=== PATIENT | female | born 1995 | race Caucasian/White ===

== ENCOUNTER 2023-02-25 05:53 | Inpatient (IN) ==
[2023-02-25] MEDS ORDERED: LACTATED RINGER'S 2,000 ML IV ONE (09:59)
[2023-02-25] MEDS ORDERED: BUTORPHANOL TARTRATE 1 MG/ML VIAL IV ONE (10:00)
[2023-02-25] MEDS ORDERED: LACTATED RINGER'S 1,000 ML IV ONE (10:15)
--- NOTE | 2023-02-25 10:22 | History & Physical Report ---
Date of Service February 25, 2023 Assessment & Plan (1) Irregular uterine contractions: Plan: 28-year-old at 40 weeks and 1 day gestation presenting with irregular uterine contractions and no cervical change, Vital signs stable afebrile, heart rate reassuring, Cervix unfavorable, GBS negative, Plan to hydrate with IV fluids and Stadol for pain and continue to monitor another 2 hours and and reevaluate. All questions were answered. (2) Gestational diabetes, diet controlled: History of Present Illness Primary Care Provider: NO PCP Patient is a 28-year-old G1, P0 at 40 weeks and 1 day gestation who has been feeling contractions since 2 AM this morning. They started as irregular initially and then they became more regular every 4-5 minutes. She denies vaginal bleeding no leaking fluids. She reports good movements. She was recommended to come up here for labor check. When she first came this morning her cervix was fingertip thick posterior and high. She ambulated and was monitored for over 2 hours. Contractions spaced out for a while and then starting back again every 4 - 5 minutes. They are not as painful as before, pain is 4 out of 10. She states she could not sleep because of discomfort. Her has been complicated by, 1. GDM A1 diet-controlled gestational diabetes, 2. Gardnerella vaginalis positive on February 22, on [employer] 3. Maternal asthma GBS negative She was scheduled for induction of labor on February 28. Allergies Allergy/AdvReac Type Severity Reaction Status Date / Time adhesive Allergy Hives Verified 02/25/23 07:04 escitalopram [From Lexapro] Allergy Hallucinati Verified 02/25/23 07:04 ng Sulfa (Sulfonamide Allergy Hives Verified 02/25/23 07:04 Antibiotics) Home Medications Medication Instructions Recorded Confirmed Type albuterol sulfate 2.5 mg/3 mL 5 mg inhalation Q6H PRN Wheezing 02/25/23 02/25/23 History (0.083 %) solution for nebulization famotidine 20 mg tablet 20 mg PO BID 02/25/23 02/25/23 History fluticasone furoate 200 1 inh inhalation DAILY 02/25/23 02/25/23 History mcg-vilanterol 25 mcg/dose inhalation powder montelukast 5 mg chewable tablet 5 mg PO HS 02/25/23 02/25/23 History vitamin-ferrous sulfate 1 tab PO DAILY 02/25/23 02/25/23 History 27 mg iron-folic acid 0.8 mg tablet Patient History Medical History Endometriosis determined by laparoscopy x2 Social History Smoking Status: Never smoker Hx Alcohol Use: No Hx Substance Use: No Preferred Language: Slovenian 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 Beliefs That Will Affect Care: None marital status: Current Living Situation: Spouse Other Information That Helps Us Care for You: No Assistive Devices: None Review of Systems as per Subjective / HPI Physical Exam Constitutional: WD/WN, vitals as above well developed, well nourished, + obese and comfortable Genitourinary: normal external appearance OB Exam Abdomen: + vertex Manual OB Exam: + cervical dilation 1 cm (Tight 1 cm), + cervical effacement 40% and + station high Bedside ultrasound, RAMÓN is 10.1 cm, vertex presentation, EFW 4030 g 500 g Results & Data Vital Signs (Past 12 Hours) Vital Signs Temp Pulse Resp BP 02/25/23 07:07 37.0 C 76 20 131/79 02/25/23 06:11 37.0 C 18 02/25/23 06:11 80 138/78 Code Status & VTE Plan VTE Prophylaxis Plan VTE Prophylaxis will be ordered: No
--- NOTE | 2023-02-25 13:29 | Obstetrical Progress Note ---
Date of Service February 25, 2023 Subjective Patient is reevaluated. IV Hydration and Stadol helped her for a while and then contractions started again, pain level is now 4/10, she comfortably talking through them VSS Afebrile VE: loose 1 cm/ 40%/ -3, posterior FHR categ I [place] contractions q4-6 min Recommended admit for induction/ augmentation, Discussed marquez baloon mechanical dilatation vs Cervidil She accepted to stay bu wants to think first Results & Data Vital Signs (Past 12 Hours) Vital Signs Temp Pulse Resp BP 02/25/23 12:14 36.7 C 69 18 134/87 02/25/23 07:07 37.0 C 76 20 131/79 02/25/23 06:11 37.0 C 18 02/25/23 06:11 80 138/78
[2023-02-25] MEDS ORDERED: BUTORPHANOL TARTRATE 1 MG/ML VIAL IV PRN (13:30)
[2023-02-25] MEDS ORDERED: DINOPROSTONE 10 MG INSERT PV ONE (13:30)
[2023-02-25] MEDS ORDERED: OXYTOCIN 30 UNITS/500 ML BAG IV PRN (13:30)
[2023-02-25] MEDS ORDERED: LIDOCAINE 1% LOCAL 20 ML VIAL INFIL PRN (13:30)
[2023-02-25] MEDS ORDERED: ONDANSETRON INJ 2 MG/ML 2 ML VIAL IV PRN ×2 (13:41→23:40)
[2023-02-25] MEDS: metroNIDAZOLE 500 MG TAB PO SCH ×2 (14:13→20:07)
[2023-02-25 14:22] LABS: Hematocrit (blood only) 34.8 % (37.0-47.0); Hemoglobin 11.5 g/dl (12.0-16.0); Mean Corpuscular Hemoglobin 26.9 pg (25.0-34.0); Mean Corpuscular Volume 81.5 fL (80.0-100.0); Mean Platelet Volume 9.5 fL (9.4-12.4); Platelet Count 196 K/uL (130-400); RDW Coefficient of Variation 12.8 % (11.5-14.5); RDW Standard Deviation 37.4 fL (36.4-46.3); Red Blood Count 4.27 M/uL (4.20-5.40); White Blood Count 9.09 K/ul (4.8-10.8)
[2023-02-25 14:36] LABS: Albumin Globulin Ratio 1.4 (0.9-2); Albumin Level 3.4 gm/dl (3.4-5.0); BUN Creatinine Ratio 13.4 (10-20); Bilirubin,Total 0.3 mg/dl (0.2-1.0); Calcium 8.7 mg/dl (8.6-10.3); Creatinine Clr Calc Pharmacy 143.7 ml/min; Est GFR (African American) 140.6 ml/min; Est GFR (Non-African American) 121.3 ml/min; Globulin 2.4 gm/dl (2.5-4.0); Potassium 3.5 mmol/L (3.5-5.1); Total Protein 5.8 gm/dl (6.0-8.3)
[2023-02-25] MEDS ORDERED: ALBUTEROL 0.083% NEBU SOLN 3 ML VIAL INH PRN (14:36)
--- NOTE | 2023-02-25 14:38 | Obstetrical Progress Note ---
Date of Service February 25, 2023 Subjective Patient ate her lunch and took PO Flagyl for BV Cervidil is placed Continue to monitor closely Results & Data Vital Signs (Past 12 Hours) Vital Signs Temp Pulse Resp BP 02/25/23 12:14 36.7 C 69 18 134/87 02/25/23 07:07 37.0 C 76 20 131/79 02/25/23 06:11 37.0 C 18 02/25/23 06:11 80 138/78
[2023-02-25] MEDS: FLUTICASONE/VILANTEROL 200/25MCG 14 PUFFS/INHALER INH SCH (15:48)
[2023-02-25] MEDS: FAMOTIDINE 20 MG TAB PO SCH (20:07)
[2023-02-25] MEDS: MONTELUKAST SOD 5 MG CHEWABLE TAB PO SCH (20:07)
[2023-02-25] MEDS ORDERED: metroNIDAZOLE 500 MG TAB PO SCH (21:00)
[2023-02-25] MEDS: LACTATED RINGER'S 1,000 ML IV PRN ×2 (22:12→23:12)
--- NOTE | 2023-02-25 22:47 | Obstetrical Progress Note ---
Date of Service February 25, 2023 Assessment & Plan Admission and Anticipated Discharge Date Admission Date: February 25, 2023 Subjective Patient is reevaluated She ate dinner around 5pm Patient asked for pain medication and she recevied 2 mg of IV stadol at 8:11 pm. She slept some and woke up again with increased pain FHR ahd been categ I Now with decreased baseline around 90-100's with good variability and accels [place] ctxs q 1-2 min VE; Cervidil is removed, cervix 2 cm/ 50%/ -3 Bolus has started FHR had decels after 2 contractions, O2 is started and 0.25 mg of Terbutaline is given FHR recovered and still has moderate variability and accels Continue to monitor closely Epidural for pain. Results & Data Vital Signs (Past 12 Hours) Vital Signs Temp Pulse Resp BP Pulse Ox 02/25/23 22:39 73 99 02/25/23 22:34 85 96 02/25/23 18:56 36.9 C 77 18 105/64 02/25/23 15:30 81 119/75 02/25/23 12:14 36.7 C 69 18 134/87
[2023-02-25] MEDS ORDERED: SODIUM CHLORIDE 0.9% PF INJ 10 ML VIAL ONE (22:48)
[2023-02-25] MEDS ORDERED: BUPIVACAINE 0.25% PF 30 ML VIAL ONE (22:48)
[2023-02-25] MEDS ORDERED: fentaNYL citrate PF 100 MCG/2 ML VIAL ONE (22:48)
[2023-02-25] MEDS ORDERED: ePHEDrine sulfate 50 MG/ML AMP ONE (22:48)
[2023-02-25] MEDS ORDERED: fentANYL 2 MCG/ML BUPIVacaine 0.125%-NSS 100ML BAG ONE (22:48)
[2023-02-25] MEDS ORDERED: LIDOCAINE 2%/EPINEPHRINE 1:200,000 20 ML PF ONE (22:49)
[2023-02-25] MEDS ORDERED: TERBUTALINE SULFATE 1 MG/ML VIAL SQ ONE (23:03)
[2023-02-25] MEDS ORDERED: SODIUM CHLORIDE 0.9% PF INJ 10 ML VIAL EPI STA (23:40)
[2023-02-25] MEDS ORDERED: ePHEDrine sulfate 50 MG/ML AMP IV PRN (23:40)
[2023-02-25] MEDS ORDERED: NALBUPHINE HCL INJ 10 MG/ML AMP IV PRN (23:40)
[2023-02-25] MEDS ORDERED: BUPIVACAINE 0.25% PF 30 ML VIAL EPI PRN (23:40)
[2023-02-25] MEDS ORDERED: diphenhydrAMINE 50 MG/ML VIAL IV PRN (23:40)
[2023-02-25] MEDS ORDERED: BUPIVACAINE 0.25% PF 30 ML VIAL EPI STA (23:40)
[2023-02-25] MEDS ORDERED: NALOXONE HCL 1 MG in SODIUM CHLORIDE 0.9% 1,000 ML IV PRN (23:40)
[2023-02-25] MEDS ORDERED: fentaNYL citrate PF 100 MCG/2 ML VIAL EPI STA (23:40)
[2023-02-25] MEDS ORDERED: LIDOCAINE 2% MPF LOCAL 5 ML VIAL EPI PRN (23:40)
[2023-02-25] MEDS ORDERED: LIDOCAINE 2%/EPINEPHRINE 1:200,000 20 ML PF EPI STA (23:40)
[2023-02-25] MEDS ORDERED: ROPIVACAINE 0.5% PF 5 MG/ML 20 ML VIAL EPI PRN (23:40)
[2023-02-25] MEDS ORDERED: NALOXONE HCL 0.4 MG/1 ML VIAL/CARP IV PRN (23:40)
[2023-02-25] MEDS ORDERED: SODIUM CHLORIDE 0.9% PF INJ 10 ML VIAL EPI PRN (23:40)
[2023-02-25] MEDS ORDERED: fentaNYL citrate PF 100 MCG/2 ML VIAL EPI PRN (23:40)
--- NOTE | 2023-02-25 23:43 | Anesthesiology Consultation ---
Date of Service February 25, 2023 Assessment & Plan ASA ASA2 Proposed Anesthesia Anesthesia Type: Labor Epidural Risk / Benefits Reviewed With: PT / POA / Parent / Guardian, Accepts Plan and Informed Consent Obtained History Height/Weight Height: 5 ft 3 in Weight: 100.244 kg Allergies Allergy/AdvReac Type Severity Reaction Status Date / Time adhesive Allergy Hives Verified 02/25/23 07:04 escitalopram [From Lexapro] Allergy Hallucinati Verified 02/25/23 07:04 ng Sulfa (Sulfonamide Allergy Hives Verified 02/25/23 07:04 Antibiotics) Medications Home Medications Medication Instructions Recorded Confirmed Last Taken albuterol sulfate 2.5 mg/3 mL 5 mg inhalation Q6H PRN Wheezing 02/25/23 02/25/23 02/25/23 05:00 (0.083 %) solution for nebulization famotidine 20 mg tablet 20 mg PO BID 02/25/23 02/25/23 02/24/23 22:00 fluticasone furoate 200 1 inh inhalation DAILY 02/25/23 02/25/23 02/24/23 09:00 mcg-vilanterol 25 mcg/dose inhalation powder montelukast 5 mg chewable tablet 5 mg PO HS 02/25/23 02/25/23 02/24/23 17:00 vitamin-ferrous sulfate 1 tab PO DAILY 02/25/23 02/25/23 02/19/23 09:00 27 mg iron-folic acid 0.8 mg tablet Active Medications Generic Name Dose Route Start Last Admin Trade Name Freq PRN Reason Stop Dose Admin Butorphanol Tartrate 2 mg 02/25/23 13:30 02/25/23 20:11 Butorphanol Tartrate 1 Mg/Ml Vial IV 03/27/23 13:29 2 mg Q3HWA PRN Administration Pain Famotidine 20 mg 02/25/23 21:00 02/25/23 20:07 Famotidine 20 Mg Tab PO 03/27/23 20:59 20 mg BID OLIVER Administration Fluticasone/Vilanterol 1 puffs 02/25/23 14:45 02/25/23 15:48 Fluticasone/Vilanterol 200/25mcg 14 Puffs/Inhaler INH 03/27/23 14:44 1 puffs DAILY OLIVER Administration Lactated Ringer's 1,000 mls @ 150 mls/hr 02/25/23 13:30 02/25/23 23:12 Lr IV 02/27/23 13:29 150 mls/hr .Q6H40M PRN Administration L&D Protocol Protocol Metronidazole 500 mg 02/25/23 13:40 02/25/23 20:07 Metronidazole 500 Mg Tab PO 03/07/23 13:39 500 mg BID OLIVER Administration Protocol Montelukast Sodium 5 mg 02/25/23 21:00 02/25/23 20:07 Montelukast Sod 5 Mg Chewable Tab PO 03/27/23 20:59 5 mg HS OLIVER Administration Past Medical History Medical History Endometriosis determined by laparoscopy x2 Exercise / Class Metabolic Activity II 4-5 Yardwork/Stairs/Walk up hill Past Anesthesia History No Hx of Anesthesia Complications and No Family Hx of Anesthesia Complications History of PONV No Hx of PONV and No Hx of Motion Sickness Social History Smoking Status: Never smoker Hx Alcohol Use: No Hx Substance Use: No Review of Systems denies fever/cough/ colds/ chest pain/ SOB/ HEIDY denies HEIDY Physical Exam Vital Signs Last Vital Signs Temp 36.9 C 02/25/23 18:56 Pulse 99 H 02/26/23 00:16 Resp 18 02/25/23 18:56 BP 125/61 02/26/23 00:16 Pulse Ox 98 02/26/23 00:13 ENMT Mouth: no TMJ abnormality and no dentition abnormality Thyromental Distance: > or= 3.5 Finger Breadths Mallampati Class: II Neck neck extension not limited Respiratory normal respiratory effort; no respiratory distress Auscultation: lungs clear to auscultation bilaterally Cardiovascular Rate/Rhythm: regular rate and regular rhythm Neurologic moves all extremities Psychiatric Orientation: alert and oriented x 3 Testing Laboratory Results 02/25/23 14:03 02/25/23 14:03 Blood Type A Positive 02/25/23 14:03 Antibody Screen NEGATIVE 02/25/23 14:03 02/25/23 20:05 POC Glucose 118 H
[2023-02-26] MEDS ORDERED: OXYTOCIN 30 UNITS/500 ML BAG IV PRN ×2 (01:14→15:01)
--- NOTE | 2023-02-26 01:14 | Obstetrical Progress Note ---
Date of Service February 26, 2023 Assessment & Plan Admission and Anticipated Discharge Date Admission Date: February 25, 2023 Subjective Patient is comfortable now, received epidural for pain FHR has been categ I since terbutaline Ctxs slowed down and then restarted Plan to augment with low dose Oxytocin per protocol Continue to monitor Results & Data Vital Signs (Past 12 Hours) Vital Signs Temp Pulse Resp BP Pulse Ox 02/26/23 01:12 79 02/26/23 01:11 115/59 L 02/26/23 01:08 82 96 02/26/23 01:03 83 94 02/26/23 01:00 18 02/26/23 01:00 18 02/26/23 00:58 87 95 02/26/23 00:57 80 94 02/26/23 00:55 88 120/56 L 02/26/23 00:53 88 95 02/26/23 00:52 90 93 02/26/23 00:48 101 H 96 02/26/23 00:43 107 H 97 02/26/23 00:40 122 H 133/84 02/26/23 00:38 122 H 117/65 96 02/26/23 00:33 107 H 97 02/26/23 00:30 18 02/26/23 00:30 18 02/26/23 00:29 105 H 93 02/26/23 00:28 107 H 94 02/26/23 00:24 99 H 120/58 L 02/26/23 00:23 101 H 97 02/26/23 00:22 96 H 120/57 L 02/26/23 00:20 100 H 114/59 L 02/26/23 00:18 98 02/26/23 00:18 93 H 02/26/23 00:18 98 H 114/62 02/26/23 00:16 99 H 125/61 02/26/23 00:14 91 H 122/58 L 02/26/23 00:13 86 98 02/26/23 00:12 93 H 124/59 L 02/26/23 00:11 92 H 124/64 02/26/23 00:10 18 02/26/23 00:10 37.1 C 18 02/26/23 00:08 109 H 136/73 99 02/26/23 00:04 106 H 93 02/26/23 00:03 103 H 94 02/25/23 23:58 104 H 97 02/25/23 23:53 106 H 98 02/25/23 23:48 113 H 97 02/25/23 23:43 86 96 02/25/23 23:38 95 H 97 02/25/23 23:33 99 H 97 02/25/23 23:28 104 H 98 02/25/23 23:23 117 H 98 02/25/23 23:09 95 H 100 02/25/23 23:04 95 H 100 02/25/23 22:59 104 H 100 02/25/23 22:57 96 H 134/68 02/25/23 22:54 93 H 99 02/25/23 22:49 91 H 99 02/25/23 22:44 89 99 02/25/23 22:39 73 99 02/25/23 22:34 85 96 02/25/23 18:56 36.9 C 77 18 105/64 02/25/23 15:30 81 119/75
[2023-02-26] MEDS ORDERED: ACETAMINOPHEN 325 MG TAB PO PRN ×2 (01:15→15:01)
[2023-02-26] MEDS: LACTATED RINGER'S 1,000 ML IV PRN ×2 (05:35→09:41)
[2023-02-26] MEDS: FAMOTIDINE 20 MG TAB PO SCH ×2 (07:36→21:40)
[2023-02-26] MEDS: metroNIDAZOLE 500 MG TAB PO SCH ×2 (07:36→21:40)
--- NOTE | 2023-02-26 07:38 | Obstetrical Progress Note ---
Date of Service February 26, 2023 Assessment & Plan (1) Gestational diabetes, diet controlled: Plan: Continue pit for augmentation Anticipate Admission and Anticipated Discharge Date Admission Date: February 25, 2023 Subjective Doing well with epidural in place Pit at 9 Review of Systems Review of Systems: All systems reviewed & are unremarkable except as noted in HPI & below Physical Exam Genitourinary: FHT: 115-120, mod variability, +acccels, no decles, Cat I [place]: q2-3 min, pit at 9 Cx: 3-4/70/-2 AROM with clear fluid, IUPC placed, no complications Results & Data Vital Signs (Past 12 Hours) Vital Signs Temp Pulse Resp BP Pulse Ox 02/26/23 07:28 110 H 98 02/26/23 07:26 69 94 02/26/23 07:25 66 113/62 02/26/23 07:23 70 94 02/26/23 07:19 71 94 02/26/23 07:18 70 95 02/26/23 07:13 70 95 02/26/23 07:11 69 126/67 02/26/23 07:08 69 96 02/26/23 07:03 73 98 02/26/23 07:00 18 02/26/23 07:00 18 02/26/23 06:58 75 99 02/26/23 06:56 74 127/74 02/26/23 06:55 72 126/71 02/26/23 06:53 75 97 02/26/23 06:48 71 97 02/26/23 06:43 92 H 98 02/26/23 06:40 71 135/77 02/26/23 06:38 74 97 02/26/23 06:33 77 98 02/26/23 06:30 18 02/26/23 06:30 18 02/26/23 06:28 80 98 02/26/23 06:25 75 126/65 02/26/23 06:23 76 97 02/26/23 06:18 67 95 02/26/23 06:13 65 96 02/26/23 06:11 73 105/58 L 02/26/23 06:08 72 96 02/26/23 06:03 66 95 02/26/23 06:00 16 02/26/23 06:00 16 02/26/23 05:58 71 96 02/26/23 05:54 68 101/56 L 02/26/23 05:53 70 95 02/26/23 05:48 70 95 02/26/23 05:43 69 96 02/26/23 05:40 77 96/50 L 02/26/23 05:38 95 02/26/23 05:38 72 02/26/23 05:38 74 94 02/26/23 05:33 80 96 02/26/23 05:30 18 02/26/23 05:30 18 02/26/23 05:28 70 95 02/26/23 05:26 65 103/54 L 02/26/23 05:23 72 96 02/26/23 05:18 67 95 02/26/23 05:16 74 94 02/26/23 05:13 70 95 02/26/23 05:10 69 108/55 L 02/26/23 05:08 70 96 02/26/23 05:07 72 94 02/26/23 05:03 68 95 02/26/23 04:58 72 95 02/26/23 04:56 71 107/57 L 02/26/23 04:53 71 95 02/26/23 04:48 74 95 02/26/23 04:43 71 95 02/26/23 04:40 67 100/55 L 02/26/23 04:38 71 94 02/26/23 04:35 71 94 02/26/23 04:33 70 95 02/26/23 04:28 84 97 02/26/23 04:25 77 90/51 L 02/26/23 04:23 72 96 02/26/23 04:21 84 94 02/26/23 04:18 72 95 02/26/23 04:15 72 94 02/26/23 04:13 70 95 02/26/23 04:10 70 104/56 L 02/26/23 04:09 77 93 02/26/23 04:08 72 95 02/26/23 04:03 81 97 02/26/23 04:00 16 02/26/23 04:00 16 02/26/23 03:58 71 95 02/26/23 03:57 71 94 02/26/23 03:56 71 105/55 L 02/26/23 03:53 73 96 02/26/23 03:48 91 H 97 02/26/23 03:43 84 95 02/26/23 03:41 76 115/59 L 02/26/23 03:38 79 97 02/26/23 03:33 80 96 02/26/23 03:30 18 02/26/23 03:30 36.9 C 18 02/26/23 03:28 99 H 97 02/26/23 03:26 75 117/63 02/26/23 03:23 75 96 02/26/23 03:22 77 94 02/26/23 03:18 77 95 02/26/23 03:17 78 94 02/26/23 03:13 76 95 02/26/23 03:10 73 117/70 94 02/26/23 03:08 74 95 02/26/23 03:05 72 94 02/26/23 03:03 71 95 02/26/23 03:00 18 02/26/23 03:00 18 02/26/23 02:59 77 94 02/26/23 02:58 74 95 02/26/23 02:55 71 113/63 02/26/23 02:53 74 95 02/26/23 02:48 76 95 02/26/23 02:47 73 94 02/26/23 02:43 74 95 02/26/23 02:41 75 94 02/26/23 02:40 77 125/67 02/26/23 02:38 78 97 02/26/23 02:33 80 97 02/26/23 02:30 18 02/26/23 02:30 18 02/26/23 02:28 98 H 99 02/26/23 02:25 83 119/59 L 02/26/23 02:23 80 95 02/26/23 02:18 73 95 02/26/23 02:13 73 96 02/26/23 02:11 77 118/62 02/26/23 02:08 77 96 02/26/23 02:03 74 96 02/26/23 02:00 18 02/26/23 02:00 18 02/26/23 01:58 74 96 02/26/23 01:55 76 114/61 02/26/23 01:53 76 96 02/26/23 01:48 79 96 02/26/23 01:43 79 95 02/26/23 01:40 81 123/59 L 02/26/23 01:38 87 96 02/26/23 01:35 79 94 02/26/23 01:33 84 94 02/26/23 01:30 18 02/26/23 01:30 18 02/26/23 01:29 78 94 02/26/23 01:28 79 95 02/26/23 01:25 80 118/57 L 02/26/23 01:23 78 95 02/26/23 01:18 95 02/26/23 01:18 79 02/26/23 01:18 80 94 02/26/23 01:13 83 95 02/26/23 01:12 79 94 02/26/23 01:11 81 115/59 L 02/26/23 01:08 82 96 02/26/23 01:03 83 94 02/26/23 01:00 18 02/26/23 01:00 18 02/26/23 00:58 87 95 02/26/23 00:57 80 94 02/26/23 00:55 88 120/56 L 02/26/23 00:53 88 95 02/26/23 00:52 90 93 02/26/23 00:48 101 H 96 02/26/23 00:43 107 H 97 02/26/23 00:40 122 H 133/84 02/26/23 00:38 122 H 117/65 96 02/26/23 00:33 107 H 97 02/26/23 00:30 18 02/26/23 00:30 18 02/26/23 00:29 105 H 93 02/26/23 00:28 107 H 94 02/26/23 00:24 99 H 120/58 L 02/26/23 00:23 101 H 97 02/26/23 00:22 96 H 120/57 L 02/26/23 00:20 100 H 114/59 L 02/26/23 00:18 98 02/26/23 00:18 93 H 02/26/23 00:18 98 H 114/62 02/26/23 00:16 99 H 125/61 02/26/23 00:14 91 H 122/58 L 02/26/23 00:13 86 98 02/26/23 00:12 93 H 124/59 L 02/26/23 00:11 92 H 124/64 11/06/23 00:10 18 02/26/23 00:10 37.1 C 18 02/26/23 00:08 109 H 136/73 99 02/26/23 00:04 106 H 93 02/26/23 00:03 103 H 94 02/25/23 23:58 104 H 97 02/25/23 23:53 106 H 98 02/25/23 23:48 113 H 97 02/25/23 23:43 86 96 02/25/23 23:38 95 H 97 02/25/23 23:33 99 H 97 02/25/23 23:28 104 H 98 02/25/23 23:23 117 H 98 02/25/23 23:09 95 H 100 02/25/23 23:04 95 H 100 02/25/23 22:59 104 H 100 02/25/23 22:57 96 H 134/68 02/25/23 22:54 93 H 99 02/25/23 22:49 91 H 99 02/25/23 22:44 89 99 02/25/23 22:39 73 99 02/25/23 22:34 85 96
[2023-02-26] MEDS: fentANYL 2 MCG/ML BUPIVacaine 0.125%-NSS 100ML BAG EPI PRN ×2 (07:49→13:47)
[2023-02-26] MEDS: FLUTICASONE/VILANTEROL 200/25MCG 14 PUFFS/INHALER INH SCH (10:39)
[2023-02-26] MEDS: PRENATAL VITAMIN 1 TAB PO SCH (10:39)
--- NOTE | 2023-02-26 14:58 | Delivery Summary ---
Vaginal Delivery Summary Date of Service February 26, 2023 Vaginal Delivery Summary Shoulder Dystocia documentation: Under epidural anesthesia, patient progressed to fully dilated and pushed to deliver the head at 1425. The mode of delivery of the head was spontaneous delivery in right occiput anterior position. Nuchal cord absent. After applying gentle downward traction, the anterior left shoulder failed to deliver. Shoulder dystocia was recognized at 1435. The shoulder dystocia guideline was activated. Patient was instructed to stop pushing. Patient was placed in McRobert's position and suprapubic pressure was not applied at this time, due to small space. Right posterior arm was grasped and hitched out in 15sec. No fundal pressure was ever applied. Gentle downward traction was placed to assist with delivery of the 's shoulders. The following maneuvers, delivery of the posterior arm, were applied which resulted in delivery of the infant's body. Time from delivery of the infant's head to body was 15 sec. Cord was doubly clamped and cut. A male infant was handed off to the pediatric team. Cord blood gasses were not sent, due to clotting. Infant was moving bilateral upper extremities after delivery. The perineum was examined. 2nd degree laceration was noted and repaired in the usual fashion. Noted small periurethral laceration that was bleeding that was closed with 3-0 chromic in a [id number] fashion. Good hemostasis was noted EBL was 600 ml. I discussed the shoulder dystocia, sequence of events and potential sequelae with the patient, family, and staff that were present. All questions and concerns were addressed. Ken Horne MD PhD
[2023-02-26] MEDS ORDERED: bisacodyL 10 MG SUPP PR PRN (15:01)
[2023-02-26] MEDS ORDERED: METHYLERGONOVINE MALEATE 0.2 MG/ML AMP IM ONE (15:01)
[2023-02-26] MEDS ORDERED: ACETAMINOPHEN W/CODEINE #3 1 TAB PO PRN (15:01)
[2023-02-26] MEDS ORDERED: DIPHTHERIA/TETANUS/PERTUSSIS Vaccine (Tdap, Age 7+yrs) 0.5mL SYR/VL IM ONE (15:01)
[2023-02-26] MEDS ORDERED: HYDROCORTISONE ACETATE 25 MG SUPP PR PRN (15:01)
--- NOTE | 2023-02-26 15:35 | Anesthesia Procedure Note ---
Date of Service February 26, 2023 Anesthesia Post Epidural Note Vital Signs Vital Signs: Temp Pulse Resp BP Pulse Ox 36.7 C 80 18 129/55 L 93 02/26/23 11:00 02/26/23 15:25 02/26/23 12:30 02/26/23 15:25 02/26/23 14:36 Pain Intensity Bilateral Abdomen: Pain Intensity: 5 Notes Mental Status: alert / awake / arousable and participated in evaluation Nausea / Vomiting: adequately controlled Pain: adequately controlled Airway Patency, RR, SpO2: stable & adequate BP & HR: stable & adequate Hydration State: stable & adequate Neuraxial Anesthesia: was administered and sensory block is resolving Anesthetic Complications: no major complications apparent and Pt Satisfied with anesthetic care Epidural: Removed without complications
[2023-02-26] MEDS ORDERED: NALBUPHINE HCL 5 MG in SYRINGE 0 ML IV PRN (16:09)
[2023-02-26] MEDS: IBUPROFEN 600 MG TAB PO PRN ×2 (16:35→21:09)
[2023-02-26] MEDS: BENZOCAINE 20% SPRY 85 APPLN/85 GM CAN EXT PRN (16:36)
[2023-02-26] MEDS: DOCUSATE SODIUM 100 MG CAP PO SCH (21:09)
[2023-02-26] MEDS: MONTELUKAST SOD 5 MG CHEWABLE TAB PO SCH (21:40)
[2023-02-27] MEDS: IBUPROFEN 600 MG TAB PO PRN ×3 (05:32→20:26)
[2023-02-27 06:34] LABS: Hematocrit (blood only) 32.3 % (37.0-47.0); Hemoglobin 10.6 g/dl (12.0-16.0); Mean Corpuscular Hemoglobin 27.2 pg (25.0-34.0); Mean Corpuscular Hgb Conc 32.8 g/dL (32.0-36.0); Platelet Count 188 K/uL (130-400); RDW Coefficient of Variation 13.1 % (11.5-14.5); RDW Standard Deviation 39.3 fL (36.4-46.3); Red Blood Count 3.89 M/uL (4.20-5.40); White Blood Count 11.55 K/ul (4.8-10.8)
[2023-02-27 07:32] LABS: Estimated Average Glucose 117 mg/dl; Hemoglobin A1C 5.7 % (4.5-5.6)
--- NOTE | 2023-02-27 08:06 | Obstetrical Progress Note ---
Date of Service February 27, 2023 Assessment & Plan Admission and Anticipated Discharge Date Admission Date: February 25, 2023 Subjective Patient is seen and examined. She feels well, no complaints. Ambulating without dizziness Voiding without difficulty Tolerating regular diet with out N&V Bleeding is minimal No fever/ chills/ CP/ SOB/ N&V/ Leg pain Breast feeding without problems Vital Signs Temp Pulse Resp BP Pulse Ox O2 Del Method 02/27/23 00:10 36.8 C 71 20 108/69 98 Room Air 02/26/23 20:20 36.8 C 78 20 135/74 96 Room Air Lab Results 02/25/23 02/25/23 02/26/23 Range/Units 14:03 20:05 09:11 WBC 9.09 (4.8-10.8) K/ul RBC 4.27 (4.20-5.40) M/uL Hgb 11.5 L (12.0-16.0) g/dl Hct 34.8 L (37.0-47.0) % MCV 81.5 (80.0-100.0) fL MCH 26.9 (25.0-34.0) pg MCHC 33.0 (32.0-36.0) g/dL RDW Std Deviation 37.4 (36.4-46.3) fL RDW Coeff of Indy 12.8 (11.5-14.5) % Plt Count 196 (130-400) K/uL MPV 9.5 (9.4-12.4) fL Sodium 133 L (136-145) mmol/L Potassium 3.5 (3.5-5.1) mmol/L Chloride 104 (98-107) mmol/L Carbon Dioxide 20 L (21-32) mmol/L Anion Gap 9 (3-11) BUN 9 (6-23) mg/dl Creatinine 0.67 (0.6-1.2) mg/dl Est Cr Clr Drug Dosing 143.7 ml/min Est GFR ( Amer) 140.6 ml/min Est GFR (Non-Af Amer) 121.3 ml/min BUN/Creatinine Ratio 13.4 (10-20) Glucose 101 H (70-99(Fasting)) mg/dl POC Glucose 118 H 86 (70-99) mg/dl Estimat Average Glucose mg/dl Hemoglobin A1c (4.5-5.6) % Calcium 8.7 (8.6-10.3) mg/dl Total Bilirubin 0.3 (0.2-1.0) mg/dl AST 15 (13-39) U/L ALT 10 (7-52) U/L Alkaline Phosphatase 138 H (34-104) U/L Total Protein 5.8 L (6.0-8.3) gm/dl Albumin 3.4 (3.4-5.0) gm/dl Globulin 2.4 L (2.5-4.0) gm/dl Albumin/Globulin Ratio 1.4 (0.9-2) Blood Type A Positive Antibody Screen NEGATIVE 02/26/23 02/27/23 Range/Units 12:04 05:59 WBC 11.55 H (4.8-10.8) K/ul RBC 3.89 L (4.20-5.40) M/uL Hgb 10.6 L (12.0-16.0) g/dl Hct 32.3 L (37.0-47.0) % MCV 83.0 (80.0-100.0) fL MCH 27.2 (25.0-34.0) pg MCHC 32.8 (32.0-36.0) g/dL RDW Std Deviation 39.3 (36.4-46.3) fL RDW Coeff of [place] 13.1 (11.5-14.5) % Plt Count 188 (130-400) K/uL MPV 10.0 (9.4-12.4) fL Sodium (136-145) mmol/L Potassium (3.5-5.1) mmol/L Chloride (98-107) mmol/L Carbon Dioxide (21-32) mmol/L Anion Gap (3-11) BUN (6-23) mg/dl Creatinine (0.6-1.2) mg/dl Est Cr Clr Drug Dosing ml/min Est GFR ( Amer) ml/min Est GFR (Non-Af Amer) ml/min BUN/Creatinine Ratio (10-20) Glucose (70-99(Fasting)) mg/dl POC Glucose 77 (70-99) mg/dl Estimat Average Glucose 117 mg/dl Hemoglobin A1c 5.7 H (4.5-5.6) % Calcium (8.6-10.3) mg/dl Total Bilirubin (0.2-1.0) mg/dl AST (13-39) U/L ALT (7-52) U/L Alkaline Phosphatase (34-104) U/L Total Protein (6.0-8.3) gm/dl Albumin (3.4-5.0) gm/dl Globulin (2.5-4.0) gm/dl Albumin/Globulin Ratio (0.9-2) Blood Type Antibody Screen PE: General: Alert, orientedx3, NAD Abd: soft, NT, fundus firm, below Umbilicus Perineum intact, Lochia rubra minimal Ext; NT, no edema AP: 28 yo s/p , ppd# 1 VSS Afebrile doing well Continue routine care Discussed GDM, diet, exercise, HBA1C level All questions were answered D/C home tomorrow Results & Data Vital Signs (Past 12 Hours) Vital Signs Temp Pulse Resp BP Pulse Ox O2 Del Method 02/27/23 00:10 36.8 C 71 20 108/69 98 Room Air 02/26/23 20:20 36.8 C 78 20 135/74 96 Room Air
[2023-02-27] MEDS: DOCUSATE SODIUM 100 MG CAP PO SCH ×2 (08:10→20:26)
[2023-02-27] MEDS: PRENATAL VITAMIN 1 TAB PO SCH ×2 (08:10→17:49)
[2023-02-27] MEDS: FERROUS SULFATE 325 MG TAB PO SCH (08:10)
[2023-02-27] MEDS: metroNIDAZOLE 500 MG TAB PO SCH ×2 (08:13→20:26)
[2023-02-27] MEDS: FAMOTIDINE 20 MG TAB PO SCH ×2 (17:49→20:26)
[2023-02-27] MEDS: FLUTICASONE/VILANTEROL 200/25MCG 14 PUFFS/INHALER INH SCH (17:50)
[2023-02-27] MEDS: BENZOCAINE 20% SPRY 85 APPLN/85 GM CAN EXT PRN (18:07)
[2023-02-27] MEDS ORDERED: bisacodyL 5 MG TABEC PO SCH (20:00)
[2023-02-27] MEDS: MONTELUKAST SOD 5 MG CHEWABLE TAB PO SCH (20:26)
[2023-02-28 07:12] LABS: Hematocrit (blood only) 28.5 % (37.0-47.0); Hemoglobin 9.3 g/dl (12.0-16.0)
[2023-02-28] MEDS: IBUPROFEN 600 MG TAB PO PRN (08:17)
[2023-02-28] MEDS: DOCUSATE SODIUM 100 MG CAP PO SCH (08:18)
[2023-02-28] MEDS: PRENATAL VITAMIN 1 TAB PO SCH ×2 (08:18→08:19)
[2023-02-28] MEDS: FERROUS SULFATE 325 MG TAB PO SCH (08:18)
[2023-02-28] MEDS: FLUTICASONE/VILANTEROL 200/25MCG 14 PUFFS/INHALER INH SCH (08:19)
[2023-02-28] MEDS: FAMOTIDINE 20 MG TAB PO SCH (08:19)
[2023-02-28] MEDS: metroNIDAZOLE 500 MG TAB PO SCH (08:19)
--- NOTE | 2023-02-28 11:29 | Obstetrical Progress Note ---
Date of Service February 28, 2023 Subjective Ambulation: ambulating normally Voiding: no voiding problems Passing Gas:: Yes Diet Tolerance:: regular diet Lochia:: Small Feeding Type:: breast feeding Current Pain Level(1-10): 0 doing well. plans for d/c today Physical Exam Constitutional WD/WN, vitals as above Gastrointestinal (Abdomen) Inspection/Auscultation: abdomen normal to inspection abdomen soft and non-tender. Fundus firm below U Musculoskeletal Extremities: extremities normal to inspection Skin no rashes, warm and dry Neurologic patellar DTR's 2+ bilat, sensation intact Psychiatric A+Ox3, euthymic affect Results & Data Vital Signs (Past 12 Hours) Vital Signs Temp Pulse Resp BP Pulse Ox O2 Del Method 02/28/23 08:05 36.7 C 87 18 133/79 Room Air 02/27/23 23:35 37.0 C 74 18 122/73 98 Room Air Laboratory Results 02/25/23 02/25/23 02/26/23 14:03 20:05 09:11 WBC 9.09 RBC 4.27 Hgb 11.5 L Hct 34.8 L MCV 81.5 MCH 26.9 MCHC 33.0 RDW Std Deviation 37.4 RDW Coeff of [place] 12.8 Plt Count 196 MPV 9.5 Sodium 133 L Potassium 3.5 Chloride 104 Carbon Dioxide 20 L Anion Gap 9 BUN 9 Creatinine 0.67 Est Cr Clr Drug Dosing 143.7 Est GFR ( Amer) 140.6 Est GFR (Non-Af Amer) 121.3 BUN/Creatinine Ratio 13.4 Glucose 101 H POC Glucose 118 H 86 Estimat Average Glucose Hemoglobin A1c Calcium 8.7 Total Bilirubin 0.3 AST 15 ALT 10 Alkaline Phosphatase 138 H Total Protein 5.8 L Albumin 3.4 Globulin 2.4 L Albumin/Globulin Ratio 1.4 Blood Type A Positive Antibody Screen NEGATIVE 02/26/23 02/27/23 02/28/23 12:04 05:59 06:42 WBC 11.55 H RBC 3.89 L Hgb 10.6 L 9.3 L Hct 32.3 L 28.5 L MCV 83.0 MCH 27.2 MCHC 32.8 RDW Std Deviation 39.3 RDW Coeff of [place] 13.1 Plt Count 188 MPV 10.0 Sodium Potassium Chloride Carbon Dioxide Anion Gap BUN Creatinine Est Cr Clr Drug Dosing Est GFR ( Amer) Est GFR (Non-Af Amer) BUN/Creatinine Ratio Glucose POC Glucose 77 Estimat Average Glucose 117 Hemoglobin A1c 5.7 H Calcium Total Bilirubin AST ALT Alkaline Phosphatase Total Protein Albumin Globulin Albumin/Globulin Ratio Blood Type Antibody Screen
--- NOTE | 2023-02-28 11:42 | Discharge Summary ---
Date of Service February 28, 2023 Admission HPI Per Admitting Provider Patient is a 28-year-old G1, P0 at 40 weeks and 1 day gestation who has been feeling contractions since 2 AM this morning. They started as irregular initially and then they became more regular every 4-5 minutes. She denies vaginal bleeding no leaking fluids. She reports good movements. She was recommended to come up here for labor check. When she first came this morning her cervix was fingertip thick posterior and high. She ambulated and was monitored for over 2 hours. Contractions spaced out for a while and then starting back again every 4 - 5 minutes. They are not as painful as before, pain is 4 out of 10. She states she could not sleep because of discomfort. Her has been complicated by, 1. GDM A1 diet-controlled gestational diabetes, 2. Gardnerella vaginalis positive on February 22, on MetroGel 3. Maternal asthma GBS negative She was scheduled for induction of labor on February 28. Hospital Course (1) Gestational diabetes, diet controlled: Continue pit for augmentation Anticipate
--- OUTSIDE RECORDS SUMMARY | 2023-03-02 14:16 | External Medical Summary | Summary of Care ---
Author Name Unknown Organization [facility] Address [address] [place] [address] Phone [phone] Care Team Providers Care Engineering Aid Name Role Phone Kalia Connor Primary Care Prov ider Encounter Details Date Type Department Care Team (Late st Contact Info) Description 02/23/2023 Telephone Gynecology/Obstetrics [facility] [address] [facility] [place] [address] Tisha Kimble CRNP [address] [place] [address] Allergies Active Allergy Reactions Criticality Noted Date Comments Escitalopram 01/08/2023 hallucinations Sulfa Antibiotics Hives 01/03/2023 documented as of this encounter (statuses as of 02/23/2023) Medications Medication Sig Dispensed Refills Start Date End Date Status 27-0.8 MG Oral Tablet Take 1 Tablet by mouth daily at noon. 0 Active Famotidine 40 MG Oral Tablet (Pepcid) Take 0.5 Tablets by mouth in the morning and 0.5 Tablets before bedtime. 0 Active Albuterol Sulfate (5 MG/ML) 0.5% Inhalation Nebulization Solution Inhale via nebulizer every 6 hours as needed for Wheezing. 0 Active Montelukast Sodium 5 MG Oral Tablet Chewable Take 1 Tablet by mouth at bedtime. 0 Active Fluticasone Furoate-Vilanterol 200-25 MCG/ACT Inhalation Aerosol Powder Breath Activated Inhale by mouth daily. 0 Active OneTouch Verio Flex System w/Device KitIndications:Diet controlled gestational diabetes mellitus (GDM) in third trimester Use to test blood sugars 4 times daily (fasting, 1 hour after breakfast, lunch, and dinner) 1 Kit 0 01/12/2023 Active OneTouch Verio In Vitro Strip (Glucose Blood)Indications:D iet controlled gestational diabetes mellitus (GDM) in third trimester Use to test blood sugars 4 times daily (fasting, 1 hour after breakfast, lunch, and dinner) 125 Strip 6 01/12/2023 Active OneTouch Delica Lancets 30GIndications:Diet controlled gestational diabetes mellitus (GDM) in third trimester Use to test blood sugars 4 times daily (fasting, 1 hour after breakfast, lunch, and dinner) 200 Each 6 01/12/2023 Active Breast Pump For lactating mother. 1 Each 0 01/22/2023 Active metroNIDAZOLE 0.75 % Vaginal Gel (Metrogel-Vaginal) Administer 1 Applicator into the vagina every night at bedtime for 5 days. 70 g 0 02/23/2023 02/28/2023 Active documented as of this encounter (statuses as of 02/23/2023) Active Problems Problem Noted Date Diagnosed Date Maternal asthma complicating 3 Overview: Managed with Albuterol as needed 01/16/23 last albuterol use: within the past 1 week Also Singulair and Breo Ellipta inhaler Denies hospitalizations or intubations due to asthma Last Assessment & Plan: CONSIDERATIONS: Asthma symptoms may improve, worsen or remain unchanged in severity in . Asthma is generally managed the same in as in the non- patient, as asthma-control medications are considered safe in . If asthma is well-controlled with medications prior to , it is recommended to continue the same medication regimen during . A patient should seek medical care immediately if an asthma flare does not respond to therapy. Mild and well-controlled moderate asthma can be associated with excellent maternal and outcomes. Severe and poorly controlled asthma may be associated with increased morbidity and mortality. Asthma management includes monitoring of lung function with pulmonary function testing (when indicated), avoidance of triggers (such as tobacco smoke, mold, dust mite exposure, animal dander and cockroaches), and a step-care approach to pharmacologic therapy based on the severity of the patient's asthma. RECOMMENDATIONS: Inhaled corticosteroids are the mainstay of therapy for all patients except those with intermittent asthma. If patients are routinely requiring rescue inhaler (such as albuterol, Ventolin, ProAir, Atrovent, or Proventil) use more than twice weekly, we recommend adding a low-dose inhaled corticosteroid. [Pulmicort (budesonide) is preferred to use in .] If patients are routinely requiring rescue inhaler use daily, we recommend adding a combined low-dose inhaled corticosteroid/long-acting beta-agonist [such as Advair (fluticasone/salmeterol) or Symbicort (budesonide/formoterol)] or a medium dose inhaled corticosteroid. Patient should discuss these treatment options with her primary OB provider or PCP. Typically, patients do not need stress dose steroids as long as they continue their usual dose perioperatively (or during labor) and do not have primary renal failure or other problems with the pituitary axis. Medications such as prostaglandin F2a (including Hemabate), ergonovine, and indomethacin (in patients who are aspirin allergic) should be used with caution. Patients with moderate or severe persistent asthma should have Maternal- Medicine ultrasound for anatomy at 19-20 weeks. surveillance with growth ultrasounds and non-stress tests should be considered starting at 32 weeks. Diet controlled gestational diabetes mellitus (GDM) in third trimester 01/12/2023 Overview: Diagnosed at 33 weeks Nutritional consult ordered 01/11/2023 GTT: Fastin 1 hour: 230 2 hour: 149 01/18/23: MFM ADAPT consult complete. Enrolled in [employer]. Instructions provided to report blood sugars each week for MFM review 01/23/23: Received message that [employer] unable to get in contact with patient to enroll; message sent to patient 02/06/23: elevated PP values sent in through My Chart. Will recommend insulin if no improvement. Currently entering blood sugars on [employer] [place]. 02/12/23-stable 02/19/23-stable Last Assessment & Plan: I reviewed the ultrasound with her. The anatomy that was visualized is unremarkable. However, it is limited due to the advanced gestational age. The overall estimated weight is consistent with the 36 percentile for the gestational age and the fetus is in the vertex presentation. The amniotic fluid volume is normal at 18 cm. As she was 35 weeks of gestation and her blood glucoses are controlled by diet alone, there is no clinical indication for return. , normal first 01/08/2023 Overview: Transferring care at 33w2d. Outside labs: A+, rubella immune, RPR non-reactive, Gc/Ct neg, urine culture neg, Hbsag neg, Hep C neg. No HIV test result. Estimated Date of Delivery Comme nts Yes 02/24/2023 Based on Other B asis, based on early first trimester scan done at [facility] / [facility] signed documented as of this encounter (statuses as of 02/23/2023) Resolved Problems Problem Noted Date Diagnosed Date Resolved Date 35 weeks gestation of 01/23/2023 01/30/2023 Supervision of high risk pre gnancy in third trimester 01/18/2023 01/30/2023 with 34 completed weeks gestation 01/18/2023 01/30/2023 Abnormal glucose tolerance i n mother complicating 01/08/2023 01/23/2023 Overview: Needs 3hr GTT documented as of this encounter (statuses as of 02/23/2023) Immunizations Name Administration Dates Next Due SEASONAL INFLUENZA, PF, 6 M & Above, IM , (FLULAVAL or FLUZONE) 01/30/2023 documented as of this encounter Social History Tobacco Use Types Packs/Day Years Used Date Smoking Tobacco: Never Smokeless Tobacco: Never Alcohol Use Standard Drinks/Week Comments Not Currently 0 (1 standard drink = 0.6 oz pur e alcohol) Hunger Vital Sign Answer Date Recorded Within the past 12 months, y ou worried that your food would run out before you got the money to buy more. Patient refused Within the past 12 months, t he food you bought just didn't last and you didn't have money to get more. Patient refused Ayer Depression Scale Answer Date Recorded Ayer Depression Scale Total 5 01/08/2023 The thought of harming myself has occurred to me . Never 01/08/2023 Estimated Date of Delivery Comme nts Yes 02/24/2023 Based on Other B asis, based on early first trimester scan done at [facility] / [facility] signed Sex and Gender Information Value Date Recorded Sex Assigned at Female 01/03/2023 10:25 AM EDT Gender Identity Female 01/03/2023 10:25 AM EDT Sexual Orientation Straight 01/03/2023 10 :25 AM EDT Job Start Date Occupation Industry Not on file Not on file Not on file documented as of this encounter Miscellaneous Notes * Telephone Encounter - Taryn Bolton LPN - 02/23/2023 2:59 PM EDT Patient calling inquiring about tx for BV. Confirmed allergies and pharmacy. documented in this encounter Plan of Treatment Health Maintenance Due Date Last Done Comments Hepatitis B (1 of 3 - 3-dose series) 1997 COVID-19 Vaccine (#1) 1997 Pneumococcal Vaccine: Pediatrics (0 to 5 Years) and At-Risk Patients (6 to 64 Years) (1 - PCV) 2003 GARDASIL-HPV IMMUNIZATION SERIES (1 - 2-dose series) 02/13/2008 Depression Screening 2009 Hepatitis C Screening 2015 DTaP,Tdap,and Td Vaccines (1 - Tdap) 02/13/2016 *SPIROMETRY ONCE FOR ASTHMA-ADULT 01/18/2023 Pap Smear 07/22/2025 07/22/2022 Influenza Vaccine (FLU shot) Completed 01/2023, 01/30/2023 MENINGOCOCCAL (MENACTRA/MENVEO) Aged Out No longer eligible b ased on patient's age to complete this topic documented as of this encounter Medical Devices Not on filedocumented as of this encounter Care Teams Engineering Aid Relationship Specialty Start Date End Date Kalia Connor CRNP [address] [place] [id number] PCP - General Nurse Practitioner 12/26/22 documented as of this encounter
--- OUTSIDE RECORDS SUMMARY | 2023-03-02 14:17 | External Medical Summary | Summary of Care ---
Author Name Unknown Organization [facility] Address [address] [place] [address] Phone [phone] Care Team Providers Care Childcare Center Administrator Name Role Phone Kalia Connor Primary Care Prov ider Encounter Details Date Type Department Care Team Description 02/04/2023 Orders Only Gynecology/Obstetrics [facility] [address] [facility] [place] [address] Carrie Arguello CRNP [address] [facility] [place] [address] Allergies Active Allergy Reactions Severity Noted Date Comments Escitalopram 01/08/2023 hallucinations Sulfa Antibiotics Hives 01/03/2023 documented as of this encounter (statuses as of 02/04/2023) Medications Medication Sig Dispensed Refills Start Date [...] Activated Inhale by mouth daily. 0 Active [employer] Verio Flex System w/Device KitIndications:Diet controlled gestational diabetes mellitus (GDM) in third trimester Use to test blood sugars 4 times daily (fasting, 1 hour after breakfast, lunch, and dinner) 1 Kit 0 01/12/2023 Active OneTouch Verio In Vitro Strip (Glucose Blood)Indications: t controlled gestational diabetes mellitus (GDM) in third [...] lactating mother. 1 Each 0 01/22/2023 Active documented as of this encounter (statuses as of 02/04/2023) Active Problems Problem Noted Date Maternal asthma complicating 0 01/16/2023 Overview: Managed with Albuterol as needed 01/16/23 [...] at 32 weeks. Diet controlled gestational diabetes dagoberto litus (GDM) in third trimester 01/12/2023 Overview: Diagnosed at 33 weeks Nutritional consult ordered 01/11/2023 GTT: Fastin 1 hour: 230 2 hour: 149 01/18/23: MFM ADAPT consult complete. Enrolled in [facility]. Instructions provided to report blood sugars each week for MFM review 01/23/23: Received message that [facility] unable to get in contact with patient to enroll; message sent to patient Last Assessment & Plan: I reviewed the [...] on early first trimester scan done at [facility] signed documented as of this encounter (statuses as of 02/04/2023) Resolved Problems Problem Noted Date Resolved Date 35 weeks gestation of 01/23/2023 01/30/2023 Supervision of high risk in third trim jasmin 01/18/2023 01/30/2023 with 34 completed weeks gestation 12/2301/30/2023 Abnormal glucose tolerance in mother complicatin g 01/08/2023 01/23/2023 Overview: Needs 3hr GTT documented as of this encounter (statuses as of 02/04/2023) Immunizations Name Administration Dates Next Due SEASONAL INFLUENZA, PF, 6 M & Above, IM , (FLULAVAL or FLUZONE) 01/30/2023 documented as of this encounter Social History Tobacco Use Types Packs/Day Years Used Date Smoking Tobacco: Never Smokeless Tobacco: Never Alcohol Use Standard Drinks/Week Comments Not Currently 0 (1 standard drink = 0.6 oz pur e alcohol) Estimated Date of Delivery Comme nts Yes 02/24/2023 Based on Other B asis, based on early first trimester scan done at [facility] signed Sex Assigned at Date Recorded Female 01/03/2023 10:25 AM EDT Job Start Date Occupation Industry Not on file Not on file Not on file documented as of this encounter Plan of Treatment Upcoming Encounters Date Type Specialty Care Team Description 02/06/2023 Office Visit Gynecology Obstetrics Tisha Kimble CRNP [address] [place] [address] 02/13/2023 Office Visit Gynecology Obstetrics Lashell Garcia, [facility] [address] [place] [address] 02/22/2023 Office Visit Gynecology Obstetrics Tisha Kimble CRNP [address] [place] [address] Health Maintenance Due Date Last Done Comments Hepatitis B (1 of 3 - 3-dose series) 1997 COVID-19 Vaccine (#1) 1997 Pneumococcal Vaccine: Pediat rics (0 to 5 Years) and At-Risk Patients (6 to 64 Years) (1 - PCV) 2003 GARDASIL-HPV IMMUNIZATION SE MARK (1 - 2-dose series) 02/13/2008 Depression Screening 2009 Hepatitis C Screening 2015 DTaP,Tdap,and Td Vaccines (1 - Tdap) 02/13/2016 *SPIROMETRY ONCE FOR ASTHMA-ADULT 01/18/2023 Pap Smear 07/22/2025 07/22/2022 Influenza Vaccine (FLU shot) Completed 01/30/2023 MENINGOCOCCAL (MENACTRA/MENVEO) Aged Out No longer eligible based on patient's age to complete this topic documented as of this encounter Medical Devices Not on filedocumented as of this encounter Procedures Procedure Name Priority Date/Time Associated Diagnosis Comments CHEMISTRY-OUTSIDE Routine 12/16/2022 TSH Routine 12/16/2022 documented in this encounter Results * (ABNORMAL) CHEMISTRY-OUTSIDE (12/16/2022) Not all results display below - see scan for full detail OUTSIDE LAB (SEE SCANNED REPORT) Comment:SEE SCAN: CMP,IRON, SATURATION,T4, FERRITIN,VIT D,CBCD CREATININE-OUTSID E LAB 0.60 0.55 - 1.02 GM/DL OUTSIDE LAB (SEE SCANNED REPORT) EGFR-OUTSIDE LAB >90 ML/MIN/1.7 3M2 OUTSIDE LAB (SEE SCANNED REPORT) POTASSIUM-OUTSIDE LAB 3.9 3.5 - 5.1 MMOL/L OUTSIDE LAB (SEE SCANNED REPORT) GLUCOSE-OUTSIDE LAB 172(H) 70 - 110 MG/DL OUTSIDE LAB (SEE SCANNED REPORT) HOURS FASTING OUTSID E LAB (SEE SCANNED REPORT) TRIGLYCERIDES-OUT SIDE LAB OUTSIDE LAB (SEE SCANNED REPORT) CHOLESTEROL-OUTSI DE LAB OUTSIDE LAB (SEE SCANNED REPORT) HDL-OUTSIDE LAB OUTS KODI LAB (SEE SCANNED REPORT) CHOL/HDL RATIO-OUTSIDE LAB OUTSIDE LA B (SEE SCANNED REPORT) LDL (CALCULATED)-OUTS KODI LAB OUTSIDE LAB (SEE SCANNED REPORT) LDL (DIRECT MEASURE)-OUTSIDE LAB OUTSIDE LAB (SEE SCANNED REPORT) HEMOGLOBIN, C1X-GPTIIDA LAB OUTSIDE LAB (SEE SCANNED REPORT) PHOSPHORUS-OUTSID E LAB OUTSIDE LAB (SEE SCANNED REPORT) PTH-OUTSIDE LAB OUTS KODI LAB (SEE SCANNED REPORT) MICROALBUMIN RATIO-OUTSIDE LAB OUTSIDE LA B (SEE SCANNED REPORT) PROTEIN, UA-OUTSIDE LAB OUTSIDE LAB (SEE SCANNED REPORT) HEMOGLOBIN-OUTSID E LAB 11.5(L) 12.0 - 16.0 GM/DL OUTSIDE LAB (SEE SCANNED REPORT) 12/16/2022 [facility] Performing Organization Address City/[facility]/ZIP Co de Phone Number OUTSIDE LAB (SEE SCANNED REPORT) * TSH (12/16/2022) TSH - OUTSIDE LAB 1.830 0.360 - 3.740 MCIU/ML OUTSIDE LAB (SEE SCANNED REPORT) Blood Venous blood specimen / Unknown 12/16/2022 [facility] RDERABLES Performing Organization Address City/[facility]/ZIP Co de Phone Number OUTSIDE LAB (SEE SCANNED REPORT) documented in this encounter Care Teams Childcare Center Administrator Relationship Specialty Start Date End Date Kalia Connor CRNP [address] [place] [id number] PCP - General Nurse Practitioner 12/26/22 documented as of this encounter
--- OUTSIDE RECORDS SUMMARY | 2023-03-02 14:17 | External Medical Summary | Summary of Care ---
Author Name Unknown Organization [facility] Address [address] [place] [address] Phone [phone] Care Team Providers Care Package Clerk Name Role Phone Kalia Connor Primary Care Prov ider Reason for Visit * Reason Comments Nutritional Services Documentation Encounter Details Date Type Department Care Team Description 02/08/2023 Nutrition Services Nutrition Services, [place] [address] [place] [address] Felipa Oden RDN [address] [place] [address] Arrived Allergies Active Allergy Reactions Severity Noted Date Comments Escitalopram 01/08/2023 hallucinations Sulfa Antibiotics Hives 01/03/2023 documented as of this encounter (statuses as of 02/08/2023) Medications Medication Sig Dispensed Refills Start Date [...] and dinner) 1 Kit 0 01/12/2023 Active Shots In Vitro Strip (Glucose Blood)Indications: t controlled gestational diabetes mellitus (GDM) in third trimester Use to test blood sugars 4 times daily (fasting, 1 hour after breakfast, lunch, and dinner) 125 Strip 6 01/12/2023 Active [employer] Lancets 30GIndications:Diet controlled gestational diabetes mellitus (GDM) in third trimester Use to test blood sugars 4 times daily (fasting, 1 hour after breakfast, lunch, and dinner) 200 Each 6 01/12/2023 Active Breast Pump For lactating mother. 1 Each 0 01/22/2023 Active documented as of this encounter (statuses as of 02/08/2023) Active Problems Problem Noted Date Maternal asthma [...] at 32 weeks. Diet controlled gestational diabetes dgaoberto litus (GDM) in third trimester 01/12/2023 Overview: Diagnosed at 33 weeks Nutritional consult ordered 01/11/2023 GTT: Fastin 1 hour: 230 2 hour: 149 01/18/23: MFM ADAPT consult complete. Enrolled in [employer]. Instructions provided to report blood sugars each week for MFM review 01/23/23: Received message that [employer] unable to get in contact with patient to enroll; message sent to patient 02/06/23: elevated PP values sent in through My Chart. Will recommend insulin if no improvement. Currently entering blood sugars on [employer] [place]. Last Assessment & Plan: I reviewed the [...] on early first trimester scan done at [facility] signed documented as of this encounter (statuses as of 02/08/2023) Resolved Problems Problem Noted Date Resolved Date 35 weeks gestation of 01/23/2023 01/30/2023 Supervision of high risk in third trim jasmin 01/18/2023 01/30/2023 with 34 completed weeks gestation 12/2301/30/2023 Abnormal glucose tolerance in mother complicatin g 01/08/2023 01/23/2023 Overview: Needs 3hr GTT documented as of this encounter (statuses as of 02/08/2023) Immunizations Name Administration Dates Next Due SEASONAL [...] on early first trimester scan done at [facility] / [facility] signed Sex Assigned at Date Recorded Female 01/03/2023 10:25 AM EDT Job Start Date Occupation Industry Not on file Not on file Not on file documented as of this encounter Progress Notes * Felipa Rogers RDN - 02/08/2023 9:30 AM EDT LMOM-to f/u w/patient since visit yesterday GDM- she was to work on following GDM meal plan- asked to call back if has questions or would like to discuss. Felipa Oneill RD, LDN, CDE University Tutor [facility] [phone] documented in this encounter Plan of Treatment Upcoming Encounters Date Type Specialty Care Team Description 02/13/2023 Office Visit Gynecology Obstetrics Lashell Garcia CNM [address] [place] [address] 02/14/2023 Telemedicine Nutrition Services Felipa Oden RDN [address] [place] [address] 02/22/2023 Office Visit Gynecology Obstetrics Tisha Kimble CRNP [address] [place] [address] Health Maintenance Due Date Last Done Comments [...] filedocumented as of this encounter Care Teams Package Clerk Relationship Specialty Start Date End Date Kalia Connor CRNP [address] [place] [id number] PCP - General Nurse Practitioner 12/26/22 documented as of this encounter
--- OUTSIDE RECORDS SUMMARY | 2023-03-02 14:17 | External Medical Summary | Summary of Care ---
Author Name Unknown Organization [facility] Address [address] [place] [address] Phone [phone] Care Team Providers Care Workforce Development Program Director Name Role Phone Kalia Connor Primary Care Prov ider Reason for Visit * Reason Comments Return Visit Encounter Details Date Type Department Care Team (Late st Contact Info) Description 02/22/2023 2:15 PM EDT Office Visit Gynecology/Obstetric s [facility] [address] [place] [address] Tisha Kimble CRNP [address] [place] [address] Encounter for supervision of normal first in third trimester*; Diet controlled gestational diabetes mellitus (GDM) in third trimester; Maternal asthma complicating Allergies Active Allergy Reactions Criticality Noted Date Comments Escitalopram 01/08/2023 hallucinations Sulfa Antibiotics Hives 01/03/2023 documented as of this encounter (statuses as of 02/22/2023) Medications Medication Sig Dispensed Refills Start Date [...] as of this encounter (statuses as of 02/22/2023) Active Problems Problem Noted Date Diagnosed Date [...] 01/18/23: MFM [facility]APT consult complete. Enrolled in [employer]. Instructions provided to report blood sugars each week for MFM review 01/23/23: Received message that [employer] unable to get in contact with patient to enroll; message sent to patient 02/06/23: elevated PP values sent in through My Chart. Will recommend insulin if no improvement. Currently entering blood sugars on [employer] [place]. 02/12/23-stable 02/19/23-stable Last Assessment & Plan: [...] on early first trimester scan done at [facility] signed documented as of this encounter (statuses as of 02/22/2023) Resolved Problems Problem Noted Date Diagnosed Date Resolved Date 35 weeks gestation of 01/23/2023 01/30/2023 Supervision of high risk pre gnancy in third trimester 01/18/2023 01/30/2023 with 34 completed weeks gestation 01/18/2023 01/30/2023 Abnormal glucose tolerance i n mother complicating 01/08/2023 01/23/2023 Overview: Needs 3hr GTT documented as of this encounter (statuses as of 02/22/2023) Immunizations Name Administration Dates Next Due SEASONAL [...] have money to get more. Patient refused [place] Depression Scale Answer Date Recorded [place] Depression Scale Total 5 01/08/2023 The thought of harming myself has occurred to me . Never 01/08/2023 Estimated Date of Delivery Comme nts Yes 02/24/2023 Based on Other B asis, based on early first trimester scan done at [facility] / [facility] signed Sex and Gender Information Value Date Recorded Sex Assigned at Female 01/03/2023 10:25 AM EDT Gender Identity Female 01/03/2023 10:25 AM EDT Sexual Orientation Straight 01/03/2023 10 :25 AM EDT Job Start Date Occupation Industry Not on file Not on file Not on file documented as of this encounter Last Filed Vital Signs Vital Sign Reading Time Taken Comments Blood Pressure 120/80 02/22/2023 2:01 PM EDT Pulse - - Temperature - - Respiratory Rate - - Oxygen Saturation - - Inhaled Oxygen Concentration - - Weight 100.6 kg (221 lb 12.8 oz) 02/22/2023 2:01 PM EDT Height 160 cm (5' 3") 02/22/2023 2:01 PM EDT Body Mass Index 39.29 02/22/2023 2:01 PM EDT documented in this encounter Progress Notes * Tisha Kimble CRNP - 02/22/2023 2:28 PM EDT 39w5d C/o vulvar itching and yellow discharge. Hasn't used anything. BV swab collected today. Wearing pantyliner during the day but not at night. Changing a few times throughout the day. Had some wetness on pantyliner several days ago but not since. Not soaking underwear when not wearing pantyliner. Reports her blood sugars are under control, hasn't had an elevated reading in weeks. Baby is active. Some contractions in the evenings. No bleeding. IOL 02/28. JOSEPHINE Krishnamurthy Aspnet Developer Documentation Provider requested tankage grinder operator. Name of tankage grinder operator: Rupa * Rupa Camara LPN - 02/22/2023 2:04 PM EDT 39w5d Pt reports ongoing pelvic pain/pressure the last couple of days, had clear discharge that saturateda panty liner but has not had any since then. +contractions 4 mins apart for 30 mins last night then stopped. Desires cervical check today. documented in this encounter Plan of Treatment Pending Results Name Type Priority Associated Diagnoses Date /Time VAGINOSIS PANEL, PCR Lab Routine Encounter for supervision of normal first in third trimester 02/22/2023 2:36 PM EDT Scheduled Orders Name Type Priority Associated Diagnoses Orde r Schedule VAGINOSIS PANEL, PCR Lab Routine Encounter for supervision of normal first in third trimester Expected: 02/22/2023, Expires: 02/23/2024 Health Maintenance Due Date Last Done Comments [...] Not on filedocumented as of this encounter Visit Diagnoses Diagnosis Encounter for supervision of normal first in third trimester- Primary Supervision of normal first Diet controlled gestational diabetes mellitus (GDM) in third trimester Maternal asthma complicating Other current maternal conditions classifiable elsewhere, complicating , childbirth, or the puerperium, unspecified as to episode of care documented in this encounter Care Teams Workforce Development Program Director Relationship Specialty Start Date End Date Kalia Connor CRNP [address] [place] [id number] PCP - General Nurse Practitioner 12/26/22 documented as of this encounter
--- OUTSIDE RECORDS SUMMARY | 2023-03-02 14:17 | External Medical Summary | Summary of Care ---
Author Name Unknown Organization [facility] Address [address] [place] [address] Phone [phone] Care Team Providers Care Torts Law Professor Name Role Phone Kalia Connor Primary Care Prov ider Encounter Details Date Type Department Care Team (Late st Contact Info) Description 02/20/2023 Telephone Gynecology/Obstetrics [facility] [address] [facility] [place] [address] Merlin Ayala MD [address] [place] [address] Allergies Active Allergy Reactions Criticality Noted Date Comments Escitalopram 01/08/2023 hallucinations Sulfa Antibiotics Hives 01/03/2023 documented as of this encounter (statuses as of 02/20/2023) Medications Medication Sig Dispensed Refills Start Date [...] and dinner) 1 Kit 0 01/12/2023 Active [employer] In Vitro Strip (Glucose Blood)Indications: t controlled gestational diabetes mellitus (GDM) in third trimester Use to test blood sugars 4 times daily (fasting, 1 hour after breakfast, lunch, and dinner) 125 Strip 6 01/12/2023 Active Doctor kinetic Lancets 30GIndications:Diet controlled gestational diabetes mellitus (GDM) in third trimester Use to test blood sugars 4 times daily (fasting, 1 hour after breakfast, lunch, and dinner) 200 Each 6 01/12/2023 Active Breast Pump For lactating mother. 1 Each 0 01/22/2023 Active documented as of this encounter (statuses as of 02/20/2023) Active Problems Problem Noted Date Diagnosed Date [...] 01/18/23: MFM ADAPT consult complete. Enrolled in [employer]. Instructions provided to report blood sugars each week for MFM review 01/23/23: Received message that [employer] unable to get in contact with patient to enroll; message sent to patient 02/06/23: elevated PP values sent in through My Chart. Will recommend insulin if no improvement. Currently entering blood sugars on [employer] [place]. 02/12/23-stable 02/19/23-stable Last Assessment & Plan: [...] on early first trimester scan done at [facility] signed documented as of this encounter (statuses as of 02/20/2023) Resolved Problems Problem Noted Date Diagnosed Date Resolved Date 35 weeks gestation of 01/23/2023 01/30/2023 Supervision of high risk pre gnancy in third trimester 01/18/2023 01/30/2023 with 34 completed weeks gestation 01/18/2023 01/30/2023 Abnormal glucose tolerance i n mother complicating 01/08/2023 01/23/2023 Overview: Needs 3hr GTT documented as of this encounter (statuses as of 02/20/2023) Immunizations Name Administration Dates Next Due SEASONAL [...] have money to get more. Patient refused [place] Depression Scale Answer Date Recorded [place] Depression Scale Total 5 01/08/2023 The thought of harming myself has occurred to me . Never 01/08/2023 Estimated Date of Delivery Comme nts Yes 02/24/2023 Based on Other B asis, based on early first trimester scan done at [facility] / [facility] signed Sex and Gender Information Value Date Recorded Sex Assigned at Female 01/03/2023 10:25 AM EDT Gender Identity Female 01/03/2023 10:25 AM EDT Sexual Orientation Straight 01/03/2023 10 :25 AM EDT Job Start Date Occupation Industry Not on file Not on file Not on file documented as of this encounter Miscellaneous Notes * Telephone Encounter - Bernadette Mcfarland LPN - 02/20/2023 10:43 AM EDT Pt is currently 39w3d with an Estimated Date of Delivery: 02/24/23 - Was having irregular contractions for the last 24 hours and then this morning they stopped. Denied Gushing fluid. + FM, denies bleeding. Reviewed labor instructions. documented in this encounter Plan of Treatment Upcoming Encounters Date Type Department Care Team (Late st Contact Info) Description 02/22/2023 2:15 PM EDT Office Visit Gynecology/Obstetrics [facility] [address] [place] [address] Tisha Kimble CRNP [address] [place] [address] Health Maintenance Due Date Last Done Comments [...] filedocumented as of this encounter Care Teams Torts Law Professor Relationship Specialty Start Date End Date Kalia Connor CRNP [address] [place] [address] PCP - General Nurse Practitioner 12/26/22 documented as of this encounter
--- OUTSIDE RECORDS SUMMARY | 2023-03-02 14:17 | External Medical Summary | Summary of Care ---
Author Name Unknown Organization [facility] Address [address] [place] [address] Phone [phone] Care Team Providers Care Padded Products Finisher Name Role Phone Kalia Connor Primary Care Prov ider Reason for Visit * Reason Comments Return Visit Encounter Details Date Type Department Care Team Description 01/30/2023 Office Visit Gynecology/Obstetrics [facility] [address] [place] [address] Carrie Arguello CRNP [address] [place] [phone] Encounter for supervision of normal first in third trimester*; Diet controlled gestational diabetes mellitus (GDM) in third trimester; Maternal asthma complicating ; Need for influenza vaccination Allergies Active Allergy Reactions Severity Noted Date Comments Escitalopram 01/08/2023 hallucinations Sulfa Antibiotics Hives 01/03/2023 documented as of this encounter (statuses as of 01/30/2023) Medications Medication Sig Dispensed Refills Start Date [...] Activated Inhale by mouth daily. 0 Active [employer] Verio Flex System w/Device KitIndications:Diet controlled gestational diabetes mellitus (GDM) in third trimester Use to test blood sugars 4 times daily (fasting, 1 hour after breakfast, lunch, and dinner) 1 Kit 0 01/12/2023 Active [employer] In Vitro Strip (Glucose Blood)Indications: t controlled gestational diabetes mellitus (GDM) in third trimester Use to test blood sugars 4 times daily (fasting, 1 hour after breakfast, lunch, and dinner) 125 Strip 6 01/12/2023 Active [employer] Lancets 30GIndications:Diet controlled gestational diabetes mellitus (GDM) in third trimester Use to test blood sugars 4 times daily (fasting, 1 hour after breakfast, lunch, and dinner) 200 Each 6 01/12/2023 Active Breast Pump For lactating mother. 1 Each 0 01/22/2023 Active documented as of this encounter (statuses as of 01/30/2023) Active Problems Problem Noted Date Maternal asthma [...] 01/18/23: MFM ADAPT consult complete. Enrolled in [facility]. Instructions provided to report blood sugars each week for MFM review 01/23/23: Received message that [facility] unable to get in contact with [...] on early first trimester scan done at [facility] signed documented as of this encounter (statuses as of 01/30/2023) Resolved Problems Problem Noted Date Resolved Date 35 weeks gestation of 01/23/2023 01/30/2023 Supervision of high risk in third trim jasmin 01/18/2023 01/30/2023 with 34 completed weeks gestation 12/2301/30/2023 Abnormal glucose tolerance in mother complicatin g 01/08/2023 01/23/2023 Overview: Needs 3hr GTT documented as of this encounter (statuses as of 01/30/2023) Immunizations Name Administration Dates Next Due SEASONAL [...] on early first trimester scan done at [facility] / [facility] signed Sex Assigned at Date Recorded Female 01/03/2023 10:25 AM EDT Job Start Date Occupation Industry Not on file Not on file Not on file documented as of this encounter Last Filed Vital Signs Vital Sign Reading Time Taken Comments Blood Pressure 118/74 01/30/2023 8:21 AM EDT Pulse - - Temperature - - Respiratory Rate - - Oxygen Saturation - - Inhaled Oxygen Concentration - - Weight 98.9 kg (218 lb) 01/30/2023 8:21 AM EDT Height - - Body Mass Index 38.62 01/22/2023 7:42 AM EDT documented in this encounter Progress Notes * JOSEPHINE Prince - 01/30/2023 8:23 AM EDT 36w3d Good movement. Having BH ctx, nothing regular. No leaking/bleeding. Reviewed outside labs from [facility] - normal, recorded in chart. No HIV result, pt willing toget this done today. GDM, has met with [facility] - aware she needs to call them to set up home monitoring for glucose levels. She has been checking blood sugars, knows she needs to consistently check 4x/day. Starting to get a feel for what foods cause higher readings. 01/24 - 90, 126, x, x 10/5 - x, 168, x, x 10/6 - 90, 111, 123, 128 01/27 - 92, x, x, x 10/8 - 83, 124, x, x 10/ - 95, 155, x, x 01/30 - x Discussed importance of glycemic control in . Had growth scan with MFM on 01/23 - WNL. Advised that there is no medical indication for induction <40 weeks at this time; this will change if medication is needed to manage GDM. GBS today. Provided labor instructions. Registered Appraiser Documentation Provider requested account planner. Name of account planner: JOSEPHINE Mcclellan LPN * Katrina Dupree LPN - 01/30/2023 8:20 AM EDT 36w3d Denies vaginal bleeding/rom Noticing wetness when sitting down. Happened twice now. Not consistently wet. + movement Would like to discuss IOL Flu shot today Labor instructions given documented in this encounter Nursing Notes * Katrina Dupree LPN - 01/30/2023 8:38 AM EDT Patient here for flu injection. Patient doing well no complaints. Injection given IM as ordered. Patient tolerated well. Patient to follow up as directed. Patient instructed to call if any complications. Patient verbalized understanding of instructions given. Injection site: Right Deltoid Medication Source: Dispensed stock medication documented in this encounter Plan of Treatment Upcoming Encounters Date Type Specialty Care Team Description 02/06/2023 Office Visit Gynecology Obstetrics Tisha Kimble CRNP [address] [place] [address] 02/13/2023 Office Visit Gynecology Obstetrics Lashell Garcia CN [address] [facility] [place] [address] 02/22/2023 Office Visit Gynecology Obstetrics Tisha Kimble CRNP [address] [place] [address] Scheduled Orders Name Type Priority Associated Diagnoses Orde r Schedule GROUP B STREP CULTURE/PCR Lab Routine Encounter for supervision of normal first in third trimester Ordered: 01/30/2023 HIV ANTIGEN & ANTIBODY SCREEN W/ CONFIRMATION Lab Routine Encounter for supervision of normal first in third trimester Expected: 01/30/2023, Expires: 01/31/2024 Health Maintenance Due Date Last Done Comments Hepatitis B (1 of 3 - 3-dose series) 1997 COVID-19 Vaccine (#1) 1997 Pneumococcal Vaccine: Pediat rics (0 to 5 Years) and At-Risk Patients (6 to 64 Years) (1 - PCV) 2003 GARDASIL-HPV IMMUNIZATION SE MARK (1 - 2-dose series) 02/13/2008 Depression Screening 2009 HIV Screening 02/13/2012 Hepatitis C Screening 2015 DTaP,Tdap,and Td Vaccines (1 - Tdap) 02/13/2016 *SPIROMETRY ONCE FOR ASTHMA-ADULT 01/18/2023 Pap Smear 07/22/2025 07/22/2022 Influenza Vaccine (FLU shot) Completed 01/30/2023 MENINGOCOCCAL (MENACTRA/MENVEO) Aged Out No longer eligible based on patient's age to complete this topic documented as of this encounter Medical Devices Not on filedocumented as of this encounter Procedures Procedure Name Priority Date/Time Associated Diagnosis Comments CBC Routine 07/24/2022 HEAD COOK PAP SCREEN Routine 07/22/2022 CULTURE, URINE, QUANTITATIVE Routine 06/28/2022 NEISSERIA AMPLIFIED ([facility] ONLY) Routine 06/28/2022 CHLAMYDIA AMPLIFIED ([facility] ONLY) Routine 06/28/2022 RPR Routine 06/28/2022 HEPATITIS B SURFACE ANTIGEN Routine 06/28/2022 TYPE AND SCREEN Routine 06/28/2022 RUBELLA IGG ANTIBODY Routine 06/28/2022 documented in this encounter Results * CBC (07/24/2022) HGB - OUTSIDE LAB 13.2 HCT-OUTSIDE LAB 40.6 PLATELETS-OUTSI DE LAB 354 Blood Venous blood specimen / Unknown Resulting Agency Comment History Per Patient LAB BLOOD ORDERABLES * HEAD COOK PAP SCREEN (07/22/2022) PAP RESULTS neg Pap Test Resulting Agency Comment History Per Patient LAB CYTOLOGY ORDERAB LES * CULTURE, URINE, QUANTITATIVE (06/28/2022) CULTURE neg Urine Resulting Agency Comment History Per Patient LAB MICRO - GENERAL ORDERABLES * NEISSERIA AMPLIFIED ([facility] ONLY) (06/28/2022) N. Gonorrhoeae neg Resulting Agency Comment History Per Patient LAB MICRO - GENERAL ORDERABLES * CHLAMYDIA AMPLIFIED ([facility] ONLY) (06/28/2022) C. Trachomatis neg Resulting Agency Comment History Per Patient LAB MICRO - GENERAL ORDERABLES * RPR (06/28/2022) Pathologist [facility] RPR - OUTSIDE LAB non reactive Blood Venous blood specimen / Unknown Resulting Agency Comment History Per Patient LAB BLOOD ORDERABLES * HEPATITIS B SURFACE ANTIGEN (06/28/2022) Pathologist [facility] HEP B SURFACE AG-OUTSIDE LAB neg Blood Venous blood specimen / Unknown Resulting Agency Comment History Per Patient LAB BLOOD ORDERABLES * TYPE AND SCREEN (06/28/2022) Pathologist [facility] ANTIBODY SCREEN -OUTSIDE LAB neg ABO/RH(D) - OUTSIDE LAB A pos Blood Venous blood specimen / Unknown Resulting Agency Comment History Per Patient LAB BLOOD BANK TEST ORDERABLES * RUBELLA IGG ANTIBODY (06/28/2022) Pathologist [facility] RUBELLA - OUTSIDE LAB immune Blood Venous blood specimen / Unknown Resulting Agency Comment History Per Patient LAB BLOOD ORDERABLES documented in this encounter Visit Diagnoses Diagnosis Encounter for supervision of normal first in third trimester- Primary Supervision of normal first Diet controlled gestational diabetes mellitus (GDM) in third trimester Maternal asthma complicating Other current maternal conditions classifiable elsewhere, complicating , childbirth, or the puerperium, unspecified as to episode of care Need for influenza vaccination Need for prophylactic vaccination and inoculation against influenza documented in this encounter Care Teams Padded Products Finisher Relationship Specialty Start Date End Date Kalia Connor CRNP [address] [place] [address] PCP - General Nurse Practitioner 12/26/22 documented as of this encounter
--- OUTSIDE RECORDS SUMMARY | 2023-03-02 14:17 | External Medical Summary | Summary of Care ---
Author Name Unknown Organization [facility] Address [address] [place] [address] Phone [phone] Care Team Providers Care Associate Professor Of Biostatistics Name Role Phone Kalia Connor Primary Care Prov ider Encounter Details Date Type Department Care Team (Late st Contact Info) Description 02/22/2023 Telephone Gynecology/Obstetrics [facility] [address] [facility] [place] [address] Tisha Kimble CRNP [address] [place] [address] Allergies Active Allergy Reactions Criticality Noted Date [...] and dinner) 1 Kit 0 01/12/2023 Active [employer] In Vitro Strip (Glucose Blood)Indications: t controlled gestational diabetes mellitus (GDM) in third trimester Use to test blood sugars 4 times daily (fasting, 1 hour after breakfast, lunch, and dinner) 125 Strip 6 01/12/2023 Active [employer] Lancets 30GIndications:Diet controlled gestational diabetes mellitus (GDM) [...] 01/18/23: MFM ADAPT consult complete. Enrolled in [employer]. Instructions provided to report blood sugars each week for MFM review 01/23/23: Received message that [employer] unable to get in contact with patient to enroll; message sent to patient 02/06/23: elevated PP values sent in through My Chart. Will recommend insulin if no improvement. Currently entering blood sugars on [employer] [place]. 02/12/23-stable 02/19/23-stable Last Assessment & Plan: [...] on early first trimester scan done at [facility] signed documented as of this encounter [...] have money to get more. Patient refused [place] Depression Scale Answer Date Recorded [place] Depression Scale Total 5 01/08/2023 The thought of harming myself has occurred to me . Never 01/08/2023 Estimated Date of Delivery Comme nts Yes 02/24/2023 Based on Other B asis, based on early first trimester scan done at [facility] signed Sex and Gender Information Value Date Recorded Sex Assigned at Female 01/03/2023 10:25 AM EDT Gender Identity Female 01/03/2023 10:25 AM EDT Sexual Orientation Straight 01/03/2023 10 :25 AM EDT Job Start Date Occupation Industry Not on file Not on file Not on file documented as of this encounter Miscellaneous Notes * Telephone Encounter - Rupa Camara LPN - 02/22/2023 3:02 PM EDT FMLA forms filled out, gave to Ml to review documented in this encounter Plan of Treatment [...] filedocumented as of this encounter Care Teams Associate Professor Of Biostatistics Relationship Specialty Start Date End Date Kalia Connor CRNP [address] [place] [id number] PCP - General Nurse Practitioner 12/26/22 documented as of this encounter
--- OUTSIDE RECORDS SUMMARY | 2023-03-02 14:17 | External Medical Summary | Summary of Care ---
Author Name Unknown Organization [facility] Address [address] [place] [address] Phone [phone] Care Team Providers Care White Hat Hacker Name Role Phone Kalia Connor Primary Care Prov ider Reason for Visit * Reason Onset Date Comments Home Monitoring Orders Only 02/06/2023 Encounter Details Date Type Department Care Team Description 02/06/2023 Home Monitoring Solar Thermal Installer Obstetrics [facility], [place] [address], [place] [id number] Alma Palacios CRNP [address], [place] [id number] Diet controlled gestational diabetes mellitus (GDM) in third trimester* Allergies Active Allergy Reactions Severity Noted Date Comments Escitalopram 01/08/2023 hallucinations Sulfa Antibiotics Hives 01/03/2023 documented as of this encounter (statuses as of 02/06/2023) Medications Medication Sig Dispensed Refills Start Date [...] Activated Inhale by mouth daily. 0 Active [employer] Verio Flex System w/Device KitIndications:Diet controlled gestational [...] and dinner) 125 Strip 6 01/12/2023 Active [employer] Delica Lancets 30GIndications:Diet controlled gestational diabetes mellitus (GDM) in third trimester Use to test blood sugars 4 times daily (fasting, 1 hour after breakfast, lunch, and dinner) 200 Each 6 01/12/2023 Active Breast Pump For lactating mother. 1 Each 0 01/22/2023 Active documented as of this encounter (statuses as of 02/06/2023) Active Problems Problem Noted Date Maternal asthma [...] 01/18/23: MFM ADAPT consult complete. Enrolled in [facility]. Instructions provided to report blood sugars each week for MFM review 01/23/23: Received message that Current [facility] unable to get in contact with patient [...] on early first trimester scan done at [facility] / [facility] signed documented as of this encounter (statuses as of 02/06/2023) Resolved Problems Problem Noted Date Resolved Date 35 weeks gestation of 01/23/2023 01/30/2023 Supervision of high risk in third trim ajsmin 01/18/2023 01/30/2023 with 34 completed weeks gestation 12/2301/30/2023 Abnormal glucose tolerance in mother complicatin g 01/08/2023 01/23/2023 Overview: Needs 3hr GTT documented as of this encounter (statuses as of 02/06/2023) Immunizations Name Administration Dates Next Due SEASONAL [...] on early first trimester scan done at [facility] / [facility] signed Sex Assigned at Date Recorded Female 01/03/2023 10:25 AM EDT Job Start Date Occupation Industry Not on file Not on file Not on file documented as of this encounter Progress Notes * Loy Scruggs, [employer] Vocational Trainer - 02/06/2023 10:48 AM EDT Patient has been successfully enrolled to the [id number] Diabetes [employer] in program. Standard alarm settings have been set as follows: Singular glucose level > 200 Singular glucose level < 60 Patient has been advised to take blood sugar four times a day (fasting upon waking, and one hour after each meal). Patient has been oriented to remote patient monitoring, assisted with initial device set-up, and provided with instruction and education regarding the program. Patient understands that this monitoring should not be used as a replacement for emergency and/or urgent care. If patient experiences any urgent symptoms, they are aware to call office/online content coordinator provider for additional instructions. In emergency situations, they will report directly to the ED for further evaluation. If you would like to customize the alert parameters and/or instructions for this patient, please let me know and we can have them changed documented in this encounter Plan of Treatment Upcoming Encounters Date Type Specialty Care Team Description 02/13/2023 Office [facility]st[facility] [address] [facility] [address] 02/22/2023 Office Visit Gynecology Obstetrics Tisha Kimble CRNP [address] [facility] [place] [address] Health Maintenance Due Date Last Done Comments [...] as of this encounter Visit Diagnoses Diagnosis Diet controlled gestational diabetes mellitus (GDM) in third trimester- Primary documented in this encounter Care Teams White Hat Hacker Relationship Specialty Start Date End Date Kalia Connor CRNP [address] [place] [id number] PCP - General Nurse Practitioner 12/26/22 documented as of this encounter
--- OUTSIDE RECORDS SUMMARY | 2023-03-02 14:17 | External Medical Summary | Summary of Care ---
Author Name Unknown Organization [facility] Address [address] [place] [address] Phone [phone] Care Team Providers Care Hide Cooking Operator Name Role Phone Kalia Connor Primary Care Prov ider Reason for Visit * Reason Comments Return Visit Encounter Details Date Type Department Care Team Description 01/30/2023 Office Visit Gynecology/Obstetrics [facility] [address] [place] [id number] Carrie Arguello CRNP [address] [place] [address] Encounter for supervision of normal first in [...] Activated Inhale by mouth daily. 0 Active [employer] Verio Flex System w/Device KitIndications:Diet controlled gestational diabetes mellitus (GDM) in third trimester Use to test blood sugars 4 times daily (fasting, 1 hour after breakfast, lunch, and dinner) 1 Kit 0 01/12/2023 Active [employer] Verio In Vitro Strip (Glucose Blood)Indications: t controlled gestational diabetes mellitus (GDM) in third trimester Use to test blood sugars 4 times daily (fasting, 1 hour after breakfast, lunch, and dinner) 125 Strip 6 01/12/2023 Active [employer] Delica Lancets 30GIndications:Diet controlled gestational diabetes mellitus [...] MFM ADAPT consult complete. Enrolled in [facility]. Instructions provided to report blood sugars each week for MFM review 01/23/23: Received message that Current [facility] unable to get in contact [...] on early first trimester scan done at [facility] / [facility] signed documented as of this encounter [...] on early first trimester scan done at [facility] / [facility] signed Sex Assigned at Date Recorded [...] manage GDM. GBS today. Provided labor instructions. Quill Cleaner Documentation Provider requested documentation specialist. Name of documentation specialist: JOSEPHINE Mcclellan LPN * Katrina Dupree LPN [...] Encounters Date Type Specialty Care Team Description 01/30/2023 Laboratory [facility] [place] [address] Encounter for supervision of normal first in third trimester 02/06/2023 Office [facility] [place] [address] 02/13/2023 Office Visit Gynecology Obstetrics Lashell Garcia, [address] [place] [address] 02/22/2023 Office Visit Gynecology Obstetrics Tisha Kimble CRNP [address] [place] [address] Pending Results Name Type Priority Associated Diagnoses Date /Time GROUP B STREP CULTURE/PCR Lab Routine Encounter for supervision of normal first in third trimester 01/30/2023 8:46 AM EDT HIV ANTIGEN & ANTIBODY SCREEN W/ CONFIRMATION Lab Routine Encounter for supervision of normal first in third trimester 01/30/2023 8:56 AM EDT Scheduled Orders Name Type Priority Associated Diagnoses Orde r Schedule HIV ANTIGEN & ANTIBODY SCREEN W/ CONFIRMATION [...] Date/Time Associated Diagnosis Comments CBC Routine 07/24/2022 UTILITY OPERATOR PAP SCREEN Routine 07/22/2022 CULTURE, URINE, QUANTITATIVE [...] History Per Patient LAB BLOOD ORDERABLES * UTILITY OPERATOR PAP SCREEN (07/22/2022) PAP RESULTS neg Pap Test Resulting Agency Comment History Per Patient LAB CYTOLOGY ORDERAB LES * CULTURE, URINE, QUANTITATIVE (06/28/2022) CULTURE neg Urine Resulting Agency Comment History Per Patient LAB MICRO - GENERAL ORDERABLES * NEISSERIA AMPLIFIED ([facility] ONLY) (06/28/2022) N. Gonorrhoeae neg Resulting Agency Comment History Per Patient LAB MICRO - GENERAL ORDERABLES * CHLAMYDIA AMPLIFIED ([facility] ONLY) (06/28/2022) Pathologist [facility] C. Trachomatis neg Resulting Agency Comment History Per Patient LAB MICRO - GENERAL ORDERABLES * RPR (06/28/2022) Pathologist [facility] RPR - OUTSIDE LAB non reactive Blood Venous blood specimen / Unknown Resulting Agency Comment History Per Patient LAB BLOOD ORDERABLES * HEPATITIS B SURFACE ANTIGEN (06/28/2022) Pathologist [facility] HEP B SURFACE AG-OUTSIDE LAB neg Blood Venous blood specimen / Unknown Resulting Agency Comment History Per Patient LAB BLOOD ORDERABLES * TYPE AND SCREEN (06/28/2022) Pathologist [facility] ANTIBODY SCREEN -OUTSIDE LAB neg ABO/RH(D) - OUTSIDE LAB A pos Blood Venous blood specimen / Unknown Resulting Agency Comment History Per Patient LAB BLOOD BANK TEST ORDERABLES * RUBELLA IGG ANTIBODY (06/28/2022) Pathologist [facility] RUBELLA - OUTSIDE LAB immune Blood Venous [...] for prophylactic vaccination and inoculation against influenza Encounter for supervision of normal first in third trimester Supervision of normal first documented in this encounter Care Teams Hide Cooking Operator Relationship Specialty Start Date End Date Kalia Connor CRNP [address] [place] [address] PCP - General Nurse Practitioner 12/26/22 documented as of this encounter
--- OUTSIDE RECORDS SUMMARY | 2023-03-02 14:17 | External Medical Summary | Summary of Care ---
Author Name Unknown Organization [facility] Address [address] [place] [address] Phone [phone] Care Team Providers Care Hris Coordinator Name Role Phone Kalia Connor Primary Care Prov ider Reason for Visit * Reason Comments Return Visit Encounter Details Date Type Department Care Team (Late st Contact Info) Description 02/22/2023 2:15 PM EDT Office Visit Gynecology/Obstetric s Marcela Galeano [address] [place] [address] Tisha Kimble CRNP [address] [place] [address] Encounter for supervision of normal first in [...] 01/18/23: MFM ADAPT consult complete. Enrolled in [facility]. Instructions provided to report blood sugars each week for MFM review 01/23/23: Received message that [facility] unable to get in contact with patient to enroll; message sent to patient 02/06/23: elevated PP values sent in through My Chart. Will recommend insulin if no improvement. Currently entering blood sugars on [facility] [place]. 02/12/23-stable 02/19/23-stable Last Assessment & Plan: [...] on early first trimester scan done at [facility] signed documented as of this encounter [...] have money to get more. Patient refused [place] Depression Scale Answer Date Recorded [place] Depression Scale Total 5 01/08/2023 The thought of harming myself has occurred to me . Never 01/08/2023 Estimated Date of Delivery Comme nts Yes 02/24/2023 Based on Other B asis, based on early first trimester scan done at [facility] / [facility] signed Sex and Gender Information Value [...] evenings. No bleeding. IOL 02/28. JOSEPHINE Krishnamurthy Telecommunication Lines Repairer Documentation Provider requested well point pumping supervisor. Name of well point pumping supervisor: Rupa * Rupa Camara LPN - 02/22/2023 [...] care documented in this encounter Care Teams Hris Coordinator Relationship Specialty Start Date End Date Kalia Connor CRNP [address] [place] [id number] PCP - General Nurse Practitioner 12/26/22 documented as of this encounter
--- OUTSIDE RECORDS SUMMARY | 2023-03-02 14:17 | External Medical Summary | Summary of Care ---
Author Name Unknown Organization [facility] Address [address] [place] [address] Phone [phone] Care Team Providers Care White Lead Filterer Name Role Phone Kalia Connor Primary Care Prov ider Reason for Visit * Reason Comments DSMT INITIAL * Evaluate & Treat - Unlimited Visits (Within 10 days (routine)) - Pending Review Specialty Diagnoses / Procedures Referred By Tere patterson Referred To Contact Hydroelectric Station Operator Chief / Nutrition Services Diagnoses Diet controlled gestational diabetes mellitus (GDM) in third trimester Tisha Kimble CRNP [address] [place] [address] Referral ID Status Reason Start Date Expiration Date Visits Requested Visits Authorized [id number] Pending Review Specialty Services Required 01/12/[phone] Encounter Details Date Type Department Care Team Description 02/07/2023 Telemedicine Nutrition Services, [facility] [address] [place] [address] Felipa Oden RDN [address] [place] [address] Diet controlled gestational diabetes mellitus (GDM) in third trimester [O24.410 (ICD-10-CM)]* Allergies Active Allergy Reactions Severity Noted Date Comments Escitalopram 01/08/2023 hallucinations Sulfa Antibiotics Hives 01/03/2023 documented as of this encounter (statuses as of 02/07/2023) Medications Medication Sig Dispensed Refills Start Date [...] and dinner) 1 Kit 0 01/12/2023 Active [employer] Verio In Vitro Strip (Glucose Blood)Indications: t controlled gestational diabetes mellitus (GDM) in third trimester Use to test blood sugars 4 times daily (fasting, 1 hour after breakfast, lunch, and dinner) 125 Strip 6 01/12/2023 Active [employer] Delica Lancets 30GIndications:Diet controlled gestational diabetes mellitus (GDM) in third trimester Use to test blood sugars 4 times daily (fasting, 1 hour after breakfast, lunch, and dinner) 200 Each 6 01/12/2023 Active Breast Pump For lactating mother. 1 Each 0 01/22/2023 Active documented as of this encounter (statuses as of 02/07/2023) Active Problems Problem Noted Date Maternal asthma [...] MFM ADAPT consult complete. Enrolled in Current [facility]. Instructions provided to report blood sugars each week for MFM review 01/23/23: Received message that [facility] unable to get in contact with patient to enroll; message sent to patient 02/06/23: elevated PP values sent in through My Chart. Will recommend insulin if no improvement. Currently entering blood sugars on [facility] [place]. Last Assessment & Plan: I reviewed [...] on early first trimester scan done at [facility] signed documented as of this encounter (statuses as of 02/07/2023) Resolved Problems Problem Noted Date Resolved Date 35 weeks gestation of 01/23/2023 01/30/2023 Supervision of high risk in [facility] 01/18/2023 01/30/2023 with 34 completed weeks gestation 12/2301/30/2023 Abnormal glucose tolerance in mother complicatin g 01/08/2023 01/23/2023 Overview: Needs 3hr GTT documented as of this encounter (statuses as of 02/07/2023) Immunizations Name Administration Dates Next Due SEASONAL [...] on early first trimester scan done at [facility] signed Sex Assigned at Date Recorded Female 01/03/2023 10:25 AM EDT Job Start Date Occupation Industry Not on file Not on file Not on file documented as of this encounter Progress Notes * Felipa Rogers RDN - 02/07/2023 7:30 AM EDT DIABETES SELF-MANAGEMENT TRAINING/INITIAL NOTE Name: Delphine Bravo Date: 02/07/2023 Patient location: HOME. I was not in a hospital or clinic location. After connecting through [employer], patient was verified with two unique identifiers. Patient (or authorized legal solar sales representative and assessor) was then informed that this was a Telemedicine visit and being conducted confidentially over secure lines. Methods to assure confidentiality were taken. Patient acknowledged consent and understanding of privacy and security of the Telemedicine visit. The patient agreed to participate. Last order of DIABETES MANAGEMENT EDUCATION (ADA) REFERRAL was found on 01/12/2023 from Refill on 01/12/2023 No order of CLINICAL NUTRITION AND DIABETES EDUCATION ANNUAL RENEWAL is found. No order of PEDIATRIC DIABETES MANAGEMENT EDUCATION (ADA) REFERRAL OP is found. ADA referral in place? Yes Participant scheduled for 1:1 training due to lack of classes scheduled within 2 months of appointment. What diabetes concerns and/or barriers to care would you like to discuss in your appointment: GDM- due Nov 4 sees MFM In your words, what is diabetes? Depends on hormones placenta giving off deflects insulin and makesyou insulin resistant and give you DM Do you know the risks of uncontrolled diabetes? No Do you believe that diabetes can be controlled? Yes Are you ready to make small changes to help with diabetes self-management: Yes What type of diabetes do you have? Gestational Diabetes Mellitus: Are you aware of the post- glucose screening recommendations? Asked/Not Answered Female of childbearing age with any type of diabetes or considering . Yes - What is your understanding of the importance of glycemic control prior to and during ? important Diabetes diagnosis year: 2022 Do you have a family history of diabetes? Yes Have you had any previous diabetes education? No Support systems: Spouse Barriers to care: None Special Needs: None Psychosocial Screening: Lately have you been feeling down, depressed or hopeless most of the day? No How Do You Manage Stress? Has not identified a way to manage stress Food Insecurity: Within the past 12 months, I worried whether our food would run out before we got money to buy more. No Within the past 12 months, the food we bought just did not last and we did not have money to buy more. No Sleep Health: Addressed - How many hours are you sleeping during the night? Prior to 8-9 Do you have difficulty falling or staying asleep? Yes Do you snore? Yes Are you waking up during the night with symptoms of low glucose levels (shaky, sweaty, nightmares)?No Are you waking up during the night to urinate frequently? No Diabetes Medications: none Monitoring blood glucose, interpreting and using results Not addressed, Self-Monitoring Blood Glucose Source of Information: Reports testing fasting and one hour after meal and knows targets-- uses [facility]FM [place] And fasting in target, usually after breakfast higher Summary: Hypoglycemia?: No Diet: Describes typical diet history/24-hour recall Breakfast: egg sandwich , a lot of times no lydia so has bagel w/butter or cream cheese with water, Snacks: usually no Lunch: varies, sometimes salad or leftovers from dinner Snacks: sometimes fruit or apple slices w/peanut butter and marshmallow fluff Dinner: veggie noodles/zucchini noodles w/claudette sauce, having hard time w/meat so adds spinach, carrots, broccoli rather than a meat Snacks: no Drinks: mostly water or unsweet tea Takes Has a cat and knows not to go near litter box Weight management review: Wt Readings from Last 6 Encounters: 02/06/23 99.3 kg (219 lb) 01/30/23 98.9 kg (218 lb) 01/22/23 97.8 kg (215 lb 9.6 oz) 01/08/23 96.3 kg (212 lb 4.8 oz) 01/03/23 93 kg (205 lb) Recent weight changes: Physical Activity: Small walks throughout day ADA STANDARDS OF CARE/BUNDLE MEASURES Diabetes Bundle / Standards of Care: Gestational Diabetes Participant Therapy Management Plan: Hypertension: BP Readings from Last 3 Encounters: 02/06/23 104/58 01/30/23 118/74 01/22/23 100/62 Gestational Diabetes Participant, being monitored by CUT ORDER HAND. Dyslipidemia: No results found for: LDL No results found for: TRIG, CHOL, HDL Gestational Diabetes Mellitus Participant Kidney function review: No results found for: ESTIMATED GLOMERULAR FILTRATION RATE - [facility] No results found for: ALBUMIN / CREATININE RATIO No results found for: PROTEIN/ CREATININE RATIO Gestational Diabetes Mellitus Participant DSMT/Diabetes MNT Diagnosis:goo Food and nutrition related knowledge deficit related to good nutrition durignpregnancy/CHO control as evidenced by interview DSMT Initial Visit Assessment of Content Areas: Choose the answer that represents the participant's competency in each area. All need to be assessed at initial. Areas taught must match intervention. If content area not assessed and/or intervened today, it will be deferred to future session. Diabetes disease process and treatment process: Comprehends amin points (3) Incorporating nutrition management into lifestyle: Needs instruction (1) Incorporating physical activity into lifestyle: Comprehends amin points (3) Using medications safely: Needs instruction (1) Monitoring blood glucose, interpreting and using results: Comprehends amin points (3) Prevention, detection, and treatment of acute complications: Needs instruction (1) Prevention, detection, and treatment of chronic complications: Comprehends amin points (3) Developing strategies to address psychosocial issues: Needs instruction (1) Developing strategies to promote health/change behavior: Needs instruction (1) DSMT/ Diabetes MNT intervention: Pathophysiology: Defined disease process. Nutrition: GDM nutrition: Educated on rationale and guidelines of nutritional management of GDM. Educated on foods high in calcium and increased needs during . Educated on iron and vitamin C-containing foods. Educated on low-mercury fish/seafood options and importance of [place] 3 fatty acids (DHA/EPA) on brain development. Emphasis on need for carbohydrate control/consistency with structured meal schedule. Importance of also meeting nutritional needs of reinforced. Stressed importance of avoiding sugar sweetened beverages, fruit juices. Encouraged bedtime snack 8-10 hours before fasting test the next day. Individualized meal pattern provided = Breakfast: 30 gr grams carbohydrate Snack: 15-30 grams carbohydrate Lunch: 45 grams carbohydrate Snack: 15-30 grams carbohydrate Dinner: 45 grams carbohydrate Bedtime snack: 15-30 grams carbohydrate discussed : nutrition needs during - aim for healthy weight Reviewed healthy weight gain- BMI - advised weight gain of lb-- Adequate nutrients to support patient health as well as normal growth and development of baby: - importance of vitamin, including iron, calcium and vitamin D, folic acid-- increased protein-additional 25 grams daily, at least 130 grams of carbohydrates,- suggested 45 gram carb /meal- adequate fluid intake- 8-10 glasses daily- water is best Advised to avoid: alcohol, unpasateurized dairy foods and juices, - raw or undercooked meat, poultry, fish or eggs, fish high in mercury, such as shark, swordfish, bertha mackerel, tilefish and albacore tuna and other foods to limit: caffeine, artificial sweeteners, organ meats--lunch meats if eaten must be heated Physical Activity: Educated on the role of physical activity on glucose control. Educated on the benefits of exercise and blood glucose lowering effects. Explained briefly the role of exercise in decreasing insulin resistance. Medication: explained possibility of needing insulin as progresses Chronic Complications: Educated on chronic complications of diabetes and prevention. Psychosocial- discussed heathy coping Participant Selected Behavioral Objective: Nutrition: To improve blood glucose control I will follow GDM meal plan Recommended Medication Changes: No changes. Education materials given to participant/caregiver and reviewed during today's visit: Academy of Nutrition and Dietetics Nutrition Care Manual: GDM Diabetes Self-Management Support:: Possible Future Topics: Content areas that were not assessed in first visit: All content areas have been assessed. Time Spent With Patient: Time in: 731 am Time out: 810 am Billing: MNT: 45 Minutes (38-52) Plan for Return: Visit date not found 1 week Participant provided with contact information for Diabetes Care and Java Flex Developer. All [facility] providers within the system are able to see [place] [employer] education and outcomes within the participant's electronic medical record. Felipa Oneill RDN, NUTRITION [facility] Diabetes Care and Java Flex Developer documented in this encounter Plan of Treatment Upcoming Encounters Date Type Specialty Care Team Description 02/13/2023 Office Visit Gynecology Obstetrics Lashell Garcia CNM [address] [place] [address] 02/14/2023 Telemedicine Nutrition Services Felipa Oden RDN [address] [place] [address] 02/22/2023 Office Visit Gynecology Obstetrics Tisha Kimble CRNP [address] [place] [address] Scheduled Referrals Name Type Priority Associated Diagnoses Orde r Schedule DIABETES MANAGEMENT EDUCATION (ADA) REFERRAL Referral Within 10 days (routine) Diet controlled gestational diabetes mellitus (GDM) in third trimester Ordered: 01/12/2023 Health Maintenance Due Date Last Done Comments [...] gestational diabetes mellitus (GDM) in third trimester [O24.410 (ICD-10-CM)]- Primary documented in this encounter Care Teams White Lead Filterer Relationship Specialty Start Date End Date Kalia Connor CRNP [address] [place] [address] [id number] PCP - General Nurse Practitioner 12/26/22 documented as of this encounter
--- OUTSIDE RECORDS SUMMARY | 2023-03-02 14:17 | External Medical Summary | Summary of Care ---
Author Name Unknown Organization [facility] Address [address] [place] [address] Phone [phone] Care Team Providers Care Pulp Plant Supervisor Name Role Phone Kalia Connor Primary Care Prov ider Reason for Visit * Reason Comments Return Visit Encounter Details Date Type Department Care Team Description 02/06/2023 Office Visit Gynecology/Obstetrics [facility]unkettjason Galeano [address] [place] [address] Tisha Kimble CRNP [address] [place] [address] Encounter for supervision of normal first in third trimester*; Diet controlled gestational diabetes mellitus (GDM) in third trimester; Maternal asthma complicating Allergies Active Allergy Reactions Severity Noted Date [...] MFM ADAPT consult complete. Enrolled in Current [facility]. Instructions provided to report blood sugars each week for MFM review 01/23/23: Received message that Current [facility] unable to get in contact with patient [...] on early first trimester scan done at [facility] signed documented as of this encounter [...] on early first trimester scan done at [facility] signed Sex Assigned at Date Recorded Female 01/03/2023 10:25 AM EDT Job Start Date Occupation Industry Not on file Not on file Not on file documented as of this encounter Last Filed Vital Signs Vital Sign Reading Time Taken Comments Blood Pressure 104/58 02/06/2023 9:11 AM EDT Pulse - - Temperature - - Respiratory Rate - - Oxygen Saturation - - Inhaled Oxygen Concentration - - Weight 99.3 kg (219 lb) 02/06/2023 9:11 AM EDT Height 160 cm (5' 3") 02/06/2023 9:11 AM EDT Body Mass Index 38.79 02/06/2023 9:11 AM EDT documented in this encounter Progress Notes * JOSEPHINE Krishnamurthy - 02/06/2023 9:33 AM EDT 37w3d Concerned about her blood sugars. Not sending them to [facility]. Breakfast readings are mostly all elevated. Advised her to send a myG message to [facility] with readings-- she thought she had to call them duringwork hours to report readings. She reports good FM. Occasional contractions, but not consistent. No bleeding or LOF. JOSEPHINE Krishnamurthy * Taryn Wu LPN - 02/06/2023 9:12 AM EDT 37w3d Sharp pain below belly button. Comes and goes. documented in this encounter Plan of Treatment Upcoming Encounters Date Type Specialty Care Team Description 02/13/2023 Office Visit Gynecology Obstetrics Lashell Garcia, JODIE [address] [place] [address] 02/22/2023 Office Visit Gynecology Obstetrics Tisha Kimble CRNP [address] [place] [address] Health Maintenance Due Date Last Done Comments [...] care documented in this encounter Care Teams Pulp Plant Supervisor Relationship Specialty Start Date End Date Kalia Connor CRNP [address] [place] [id number] PCP - General Nurse Practitioner 12/26/22 documented as of this encounter
--- OUTSIDE RECORDS SUMMARY | 2023-03-02 14:17 | External Medical Summary | Summary of Care ---
Author Name Unknown Organization [facility] Address [address] [place] [address] Phone [phone] Care Team Providers Care Insurance Law Specialist Name Role Phone Kalia Connor Primary Care Prov ider Reason for Visit * Reason Comments Return Visit Encounter Details Date Type Department Care Team Description 01/30/2023 Office Visit Gynecology/Obstetrics [facility] [address] [place] [address] Carrie Arguello CRNP [address] [place] [address] Encounter for supervision of normal first in [...] Activated Inhale by mouth daily. 0 Active [employer] Verio Flex System w/Device KitIndications:Diet controlled gestational diabetes mellitus (GDM) in third trimester Use to test blood sugars 4 times daily (fasting, 1 hour after breakfast, lunch, and dinner) 1 Kit 0 01/12/2023 Active [employer] Verio In Vitro Strip (Glucose Blood)Indications: t controlled gestational diabetes mellitus (GDM) in third trimester Use to test blood sugars 4 times daily (fasting, 1 hour after breakfast, lunch, and dinner) 125 Strip 6 01/12/2023 Active [employer] Delica Lancets 30GIndications:Diet controlled gestational diabetes mellitus [...] MFM ADAPT consult complete. Enrolled in Current [facility]. Instructions provided to report blood sugars each week for MFM review 01/23/23: Received message that Current [facility] unable to get in contact with patient [...] scan done at [facility] signed documented as of this encounter [...] scan done at [facility] signed Sex Assigned at Date Recorded [...] manage GDM. GBS today. Provided labor instructions. Automotive Electrical Helper Documentation Provider requested road gang supervisor. Name of road gang supervisor: JOSEPHINE Mcclellan LPN * Katrina Dupree LPN [...] Team Description 01/30/2023 Laboratory Laboratory [facility] [address] [facility] [address] 02/06/2023 Office Visit Gynecology Obstetrics Tisha Kimble CRNP [address] [place] [address] 02/13/2023 Office Visit Gynecology Obstetrics Lashell Garcia [address] [place] [address] 02/22/2023 Office Visit Gynecology Obstetrics Tisha Kimble CRNP [address] [place] [address] Pending Results Name Type Priority Associated Diagnoses Date /Time GROUP B STREP CULTURE/PCR Lab Routine Encounter for supervision of normal first in third trimester 01/30/2023 8:46 AM EDT Scheduled Orders Name Type Priority [...] Date/Time Associated Diagnosis Comments CBC Routine 07/24/2022 TRACK WELDER PAP SCREEN Routine 07/22/2022 CULTURE, URINE, QUANTITATIVE [...] History Per Patient LAB BLOOD ORDERABLES * TRACK WELDER PAP SCREEN (07/22/2022) PAP RESULTS neg Pap [...] * CHLAMYDIA AMPLIFIED ([facility] ONLY) (06/28/2022) Pathologist [facility] C. Trachomatis neg Resulting Agency Comment History [...] influenza documented in this encounter Care Teams Insurance Law Specialist Relationship Specialty Start Date End Date Kalia Connor CRNP [address] [place] [address] PCP - General Nurse Practitioner 12/26/22 documented as of this encounter
--- OUTSIDE RECORDS SUMMARY | 2023-03-02 14:17 | External Medical Summary ---
Author Name Unknown Address Unknown [facility] [address] [facility] [address] Laboratory Report Ordering Provider Test Date Status [place]ICH[place] RODRÍGUEZ 02/22/2023 14:36:05 Final Observation Date Value Abnormality Reference (Units ) Status Jina glabrata DNA [Presence] in Vaginal fluid by SRINIVAS with probe detection 02/22/2023 14:36:05 Negative Negative Final Jina glabrata not detecte d by PCR. Jina albicans DNA [Presen ce] in Vaginal fluid by SRINIVAS with probe detection 02/22/2023 14:36:05 Negative Negative Final Jina albicans not detecte d by PCR. Trichomonas vaginalis DNA [P resence] in Vaginal fluid by SRINIVAS with probe detection 02/22/2023 14:36:05 Negative Negative Final Trichomonas vaginalis not de tected by PCR. Gardnerella vaginalis DNA [Presence] in Vaginal fluid by Probe with signal amplification 02/22/2023 14:36:05 Positive Abnormal Ne gative Final Gardnerella vaginalis detect ed by PCR.

Organism may be associated with colonization. Clinical correlation needed.
This test was developed and its performance characteristics determined by [facility]. It has not been cleared or approved by the U.S. Food and Drug Administration (FDA). FDA does not require this test to go through premarket FDA review. This test is used for clinical purposes. It should not be regarded as investigational or for research. This laboratory is certified under the Clinical Laboratory Improvement Amendments (CLIA) as qualified to perform high complexity clinical laboratory testing.

The validation of self-collected vaginal swabs for this assay was developed and performance characteristics determined by [facility]. The validation of alternate specimen types has not been cleared or approved by the U.S. Food and Drug Administration (FDA). It has been determined that such clearance or approval is not necessary.

null Performing Location [facility] [place] [facility] [address] [facility] [address] [place] [facility] [address]
--- OUTSIDE RECORDS SUMMARY | 2023-03-02 14:17 | External Medical Summary | Summary of Care ---
Author Name Unknown Organization [facility] Address [address] [place] [address] Phone [phone] Care Team Providers Care Cannon Fire Direction Specialist Name Role Phone Kalia Connor Primary Care Prov ider Reason for Visit * Reason Comments Return Visit Encounter Details Date Type Department Care Team (Late st Contact Info) Description 02/13/2023 8:30 AM EDT Office Visit Gynecology/Obstetric s [facility] [address] [facility] [place] [address] Lashell Garcia, [facility] [address] [place] [place] [id number] Encounter for supervision of normal first in third trimester*; Diet controlled gestational diabetes mellitus (GDM) in third trimester; Maternal asthma complicating Allergies Active Allergy Reactions Criticality Noted Date Comments Escitalopram 01/08/2023 hallucinations Sulfa Antibiotics Hives 01/03/2023 documented as of this encounter (statuses as of 02/13/2023) Medications Medication Sig Dispensed Refills Start Date [...] as of this encounter (statuses as of 02/13/2023) Active Problems Problem Noted Date Diagnosed Date [...] 01/18/23: MFM ADAPT consult complete. Enrolled in [employer]. Instructions provided to report blood sugars each week for MFM review 01/23/23: Received message that [employer] unable to get in contact with patient to enroll; message sent to patient 02/06/23: elevated PP values sent in through My Chart. Will recommend insulin if no improvement. Currently entering blood sugars on [employer] [place]. 02/12/23-stable Last Assessment & Plan: I reviewed the [...] at [facility] / [facility] signed documented as of this encounter (statuses as of 02/13/2023) Resolved Problems Problem Noted Date Diagnosed Date Resolved Date 35 weeks gestation of 01/23/2023 01/30/2023 Supervision of high risk pre gnancy in third trimester 01/18/2023 01/30/2023 with 34 completed weeks gestation 01/18/2023 01/30/2023 Abnormal glucose tolerance i n mother complicating 01/08/2023 01/23/2023 Overview: Needs 3hr GTT documented as of this encounter (statuses as of 02/13/2023) Immunizations Name Administration Dates Next Due SEASONAL [...] have money to get more. Patient refused [place] Depression Scale Answer Date Recorded [place] Depression Scale Total 5 01/08/2023 The thought of harming myself has occurred to me . Never 01/08/2023 Estimated Date of Delivery Comme nts Yes 02/24/2023 Based on Other B asis, based on early first trimester scan done at [facility] / [facility] signed Sex and Gender Information Value Date Recorded Sex Assigned at Female 01/03/2023 10:25 AM EDT Gender Identity Female 01/03/2023 10:25 AM EDT Sexual Orientation Straight 01/03/2023 10 :25 AM EDT Job Start Date Occupation Industry Not on file Not on file Not on file documented as of this encounter Last Filed Vital Signs Vital Sign Reading Time Taken Comments Blood Pressure 124/72 02/13/2023 8:30 AM EDT Pulse - - Temperature - - Respiratory Rate - - Oxygen Saturation - - Inhaled Oxygen Concentration - - Weight 99.8 kg (220 lb) 02/13/2023 8:30 AM EDT Height 160 cm (5' 3") 02/13/2023 8:30 AM EDT Body Mass Index 38.97 02/13/2023 8:30 AM EDT documented in this encounter Progress Notes * Lashell Garcia CNM - 02/13/2023 8:36 AM EDT Delphine Bravo is a 28 year old female here for her routine OB appointment at 38w3d Her Estimated Date of Delivery: 02/24/23 REVIEW OF SYSTEMS: She affirms movement. Denies vaginal bleeding, LOF, contractions, and RUQ pain. Reports nausea, fatigue, and occasional lightheadedness.Mild cramping at night but no consistent contraction pattern. She had a headache withvision changes yesterday during work, which she attributes to stress at work and using the computerat work. Vision changes subsided when she looked away from computer. 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 She states she has had floaters throughout her . Denies any recentchanges in vision and denies seeing black spots. Desires to schedule a 40 week elective induction of labor. PHYSICAL EXAM: Filed Vitals: 02/13/23 0830 BP: 124/72 Weight: 99.8 kg (220 lb) Height: 1.6 m (5' 3") +FHT 130-140bpm Fundal height: 39cm Cervix: closed/thick/posterior Instrument Assembler Documentation Provider requested business intern. Name of business intern: Taryn Wu LPN ASSESSMENT/PLAN: (O24.410) Diet controlled gestational diabetes mellitus (GDM) in third trimester Plan: -Checking BG 4x daily and sending to M -Not requiring insulin (O99.519, J45.909) Maternal asthma complicating Plan: -Using Ventolin inhaler ~3 times weekly (Z34.03) Encounter for supervision of normal first in third trimester (primary encounter diagnosis) Plan: - labor precautions and kick counts reviewed -Elective IOL scheduled for 02/28/23 per patient request. Recommended against elective IOL. Discussed recommendation for IOL by 42 weeks. Patient is aware that her IOL may be postponed if a patient with a medical indication for induction needs to be induced that day. -recommended increasing hydration - RTO in 1 week Lashell Garcia CNM documented in this encounter Nursing Notes * Taryn Wu LPN - 02/13/2023 8:33 AM EDT 38w3d Agreeable to scheduling IOL. documented in this encounter Plan of Treatment Upcoming Encounters Date Type Department Care Team (Late st Contact Info) Description 02/22/2023 2:15 PM EDT Office Visit Gynecology/Obstetrics [facility] [address] [place] [address] Tisha Kimble CRNP [address] [place] [address] Health Maintenance Due Date Last Done Comments [...] care documented in this encounter Care Teams Cannon Fire Direction Specialist Relationship Specialty Start Date End Date Kalia Connor CRNP [address] [place] [id number] PCP - General Nurse Practitioner 12/26/22 documented as of this encounter
--- OUTSIDE RECORDS SUMMARY | 2023-03-02 14:17 | External Medical Summary | Summary of Care ---
Author Name Unknown Organization [facility] Address [address] [place] [address] Phone [phone] Care Team Providers Care Industrial Green Systems Designer Name Role Phone Kalia Connor Primary Care Prov ider Reason for Visit * Reason Comments Outpatient Testing Encounter Details Date Type Department Care Team Description 01/30/2023 Laboratory Laboratory, [facility] [address] [place] [id number] [facility] [address] [place] [address] Encounter for supervision of normal first in third trimester Allergies Active Allergy Reactions Severity Noted Date [...] Activated Inhale by mouth daily. 0 Active [employer] Verio Flex System w/Device KitIndications:Diet controlled gestational diabetes mellitus (GDM) in third trimester Use to test blood sugars 4 times daily (fasting, 1 hour after breakfast, lunch, and dinner) 1 Kit 0 01/12/2023 Active [employer] Verio In Vitro Strip (Glucose Blood)Indications: t controlled gestational diabetes mellitus (GDM) in third trimester Use to test blood sugars 4 times daily (fasting, 1 hour after breakfast, lunch, and dinner) 125 Strip 6 01/12/2023 Active [employer] DelRobert Applebaum MD Lancets 30GIndications:Diet controlled gestational diabetes mellitus (GDM) [...] 01/18/23: MFM ADAPT consult complete. Enrolled in [facility]. Instructions provided to report blood sugars each week for MFM review 01/23/23: Received message that [facility] unable to get in contact with [...] on early first trimester scan done at [facility] signed documented as of this encounter (statuses [...] on early first trimester scan done at [facility] signed Sex Assigned at Date Recorded Female 01/03/2023 10:25 AM EDT Job Start Date Occupation Industry Not on file Not on file Not on file documented as of this encounter Plan of Treatment Upcoming Encounters Date Type Specialty Care Team Description 02/06/2023 Office Visit Gynecology Obstetrics Tisha Kimble CRNP [address] [place] [address] 02/13/2023 Office Visit Gynecology Obstetrics Lashell Garcia CNM [address] [place] [address] 02/22/2023 Office Visit Gynecology Obstetrics Tisha Kimble CRNP [address] [place] [address] Pending Results Name Type Priority Associated Diagnoses Date /Time HIV ANTIGEN & ANTIBODY SCREEN W/ CONFIRMATION Lab Routine Encounter for supervision of normal first in third trimester 01/30/2023 8:56 AM EDT Health Maintenance Due Date Last Done Comments [...] first documented in this encounter Care Teams Industrial Green Systems Designer Relationship Specialty Start Date End Date Kalia Connor CRNP [address] [place] [id number] PCP - General Nurse Practitioner 12/26/22 documented as of this encounter
--- OUTSIDE RECORDS SUMMARY | 2023-03-02 14:17 | External Medical Summary | Summary of Care ---
Author Name Unknown Organization [facility] Address [address] [place] [address] Phone [phone] Care Team Providers Care Pad Cutter Name Role Phone Kalia Connor Primary Care Prov ider Reason for Visit * Reason Comments Return Visit Encounter Details Date Type Department Care Team (Late st Contact Info) Description 02/22/2023 2:15 PM EDT Office Visit Gynecology/Obstetric s Marcela Galeano [address] [place] [address] Tisha Kimble CRNP [address] [place] [address] Encounter for supervision of normal first in [...] 01/18/23: MFM ADAPT consult complete. Enrolled in [employer]. Instructions provided to report blood sugars each week for MFM review 01/23/23: Received message that [employer] unable to get in contact with patient to enroll; message sent to patient 02/06/23: elevated PP values sent in through My Chart. Will recommend insulin if no improvement. Currently entering blood sugars on [employer] [place]. 02/12/23-stable 02/19/23-stable Last Assessment & Plan: [...] on early first trimester scan done at [facility] signed documented as of this encounter [...] have money to get more. Patient refused [place] Depression Scale Answer Date Recorded [place] Depression Scale Total 5 01/08/2023 The thought of harming myself has occurred to me . Never 01/08/2023 Estimated Date of Delivery Comme nts Yes 02/24/2023 Based on Other B asis, based on early first trimester scan done at [facility] signed Sex and Gender Information Value [...] evenings. No bleeding. IOL 02/28. JOSEPHINE Krishnamurthy Business Support Manager Documentation Provider requested cobol application developer. Name of cobol application developer: Rupa * Rupa Camara LPN - 02/22/2023 [...] care documented in this encounter Care Teams Pad Cutter Relationship Specialty Start Date End Date Kalia Connor CRNP [address] [place] [address] PCP - General Nurse Practitioner 12/26/22 documented as of this encounter
--- OUTSIDE RECORDS SUMMARY | 2023-03-02 14:18 | External Medical Summary | Summary of Care ---
Author Name Unknown Organization [facility] Address [address] [place] [address] Phone [phone] Care Team Providers Care Mechanical Systems Designer Name Role Phone Kalia Connor Primary Care Prov ider Reason for Visit * Reason Onset Date Comments Home Monitoring Telephone 01/23/2023 Encounter Details Date Type Department Care Team Description 01/23/2023 Telephone Care Coordination [address] [place], [place] [id number] Loy Scruggs [facility] Lead Material Handler [address] [place] [address] Home Monitoring Telephone Allergies Active Allergy Reactions Severity Noted Date Comments Escitalopram 01/08/2023 hallucinations Sulfa Antibiotics Hives 01/03/2023 documented as of this encounter (statuses as of 01/23/2023) Medications Medication Sig Dispensed Refills Start Date [...] and dinner) 1 Kit 0 01/12/2023 Active [employer] Verio In Vitro Strip (Glucose Blood)Indications: t controlled gestational diabetes mellitus (GDM) in third trimester Use to test blood sugars 4 times daily (fasting, 1 hour after breakfast, lunch, and dinner) 125 Strip 6 01/12/2023 Active [employer] [facility] Delica Lancets 30GIndications:Diet controlled gestational diabetes mellitus (GDM) in third trimester Use to test blood sugars 4 times daily (fasting, 1 hour after breakfast, lunch, and dinner) 200 Each 6 01/12/2023 Active Breast Pump For lactating mother. 1 Each 0 01/22/2023 Active documented as of this encounter (statuses as of 01/23/2023) Active Problems Problem Noted Date 35 weeks gestation of 01/24/20 Supervision of high risk in ird trimester 01/18/2023 with 34 completed weeks gestat ion 01/18/2023 Maternal asthma complicating 0 01/16/2023 Overview: Managed [...] 01/18/23: MFM ADAPT consult complete. Enrolled in [employer] [facility]. Instructions provided to report blood sugars each week for MFM review 01/23/23: Received message that [employer] [facility] unable to get in contact with [...] first 01/08/2023 Overview: Transferring care at 33w2d. Awaiting records Needs 3hr GTT Abnormal glucose tolerance in mother com plicating 01/08/2023 Overview: Needs 3hr GTT Estimated Date of Delivery Comme nts Yes 02/24/2023 Based on Other B asis, based on early first trimester scan done at [facility] / [facility] signed documented as of this encounter (statuses as of 01/23/2023) Social History Tobacco Use Types Packs/Day Years Used Date Smoking Tobacco: Never Smokeless Tobacco: Never Alcohol Use Standard Drinks/Week Comments Not Currently 0 (1 standard drink = 0.6 oz pur e alcohol) Estimated Date of Delivery Comme nts Yes 02/24/2023 Based on Other B asis, based on early first trimester scan done at [facility] / [facility] signed Sex Assigned at Date Recorded Female 01/03/2023 10:25 AM EDT Job Start Date Occupation Industry Not on file Not on file Not on file documented as of this encounter Miscellaneous Notes * Telephone Encounter - JOSEPHINE Moody - 01/23/2023 1:32 PM EDT Message sent to patient regarding same. JOSEPHINE Ohara 01/23/2023 1:32 PM * Telephone Encounter - Fior Lovell Lead Material Handler - 01/23/2023 1:21 PM EDT I have been unsuccessful in out reach attempts for [facility] in .Attempts made on 01/19, 01/22, and 01/23. My G message also sent. Loy Scruggs Community Programs Specialist documented in this encounter Plan of Treatment Upcoming Encounters Date Type Specialty Care Team Description 01/30/2023 Office Visit Gynecology Obstetrics Backer, JOSEPHINE Carey [address] [place] [address] 02/06/2023 Office Visit Gynecology Obstetrics Tisha Kimble CRNP [address] [place] [address] 02/13/2023 Office Visit Gynecology Obstetrics Lashell Garcia, [facility] [address] [place] [address] 02/22/2023 Office Visit Gynecology Obstetrics Tisha Kimble CRNP [address] [address] Health Maintenance Due Date Last Done Comments [...] DTaP,Tdap,and Td Vaccines (1 - Tdap) 02/13/2016 Pap Smear 2018 Influenza Vaccine (FLU shot) (#1) 2022 *SPIROMETRY ONCE FOR ASTHMA-ADULT 01/18/2023 MENINGOCOCCAL (MENACTRA/MENVEO) Aged Out No longer eligible based on patient's age to complete this topic documented as of this encounter Medical Devices Not on filedocumented as of this encounter Care Teams Mechanical Systems Designer Relationship Specialty Start Date End Date Kalia Connor CRNP [address] [place] [address] PCP - General Nurse Practitioner 12/26/22 documented as of this encounter
--- OUTSIDE RECORDS SUMMARY | 2023-03-02 14:18 | External Medical Summary ---
Author Name Unknown Address Unknown Organization K01:[facility]ATORY [facility] - [address] [place] [address] Ave[address] [facility] [address] Laboratory Report Ordering Provider Test Date Status MACIEJ HOOD 01/30/2023 08:56:59 Final Observation Date Value Abnormality Reference (Units ) Status HIV 1+2 Ab+HIV1 p24 Ag [Presence] in Serum or Plasma by Immunoassay 01/30/2023 08:56:59 Negative Negative Final Negative HIV-1/2 antigen and antibody screening tset results usually indicate the absence of HIV-1 and HIV-2 infection. However, such negative results do not rule-out acute HIV infection. If acute HIV-1 infection is highly suspected, it is recommended that a specimen be submitted for detection of HIV-1 RNA. Performing Location [facility]ORY [facility] - [address] [facility] [address]
--- OUTSIDE RECORDS SUMMARY | 2023-03-02 14:18 | External Medical Summary | Summary of Care ---
Author Name Unknown Organization [facility] Address [address] [place] [address] Phone [phone] Care Team Providers Care Calender Runner Name Role Phone Kalia Connor Primary Care Prov ider Reason for Referral * Evaluate & Treat - Unlimited Visits (Within 3 days (urgent)) - Pending Review Specialty Diagnoses / Procedures Referred By Tere patterson Referred To Contact Managed Services Consultant Diagnoses Diet controlled gestational diabetes mellitus (GDM) in third trimester Alma Palacios CRNP [address] [place] [address] Referral ID Status Reason Start Date Expiration Date Visits Requested Visits Authorized [id number] Pending Review Specialty Services Required 01/18/2023 1 1 Question Answer Referral Priority Within 3 days (urgent) Program Type Chronic Disease Management Chronic Disease Management Diabetes in Alarm Settings Standard per protocol Comments One Touch Verio Reason for Visit * Reason Comments Consultation GESTATIONAL DIABETES * Evaluate & Treat - Unlimited Visits (Within 10 days (routine)) - Pending Review Specialty Diagnoses / Procedures Referred By Contpillo patterson Referred To Contact Obstetrics/Gynecology / Maternal Medicine Diagnoses Diet controlled gestational diabetes mellitus (GDM) in third trimester Tisha Kimble CRNP [address] [place] [address] Referral ID Status Reason Start Date Expiration Date Visits Requested Visits Authorized [id number] Pending Review Specialty Services Required 01/12/[phone] Encounter Details Date Type Department Care Team Description 01/18/2023 Telemedicine [employer] Obstetrics Maternal Medicine, [place] [address] [place] [address] Alma Palacios CRNP [address] [place] [address] Diet controlled gestational diabetes mellitus (GDM) in third trimester*; Maternal asthma complicating ; Supervision of high risk in third trimester; with 34 completed weeks gestation Allergies Active Allergy Reactions Severity Noted Date Comments Escitalopram 01/08/2023 hallucinations Sulfa Antibiotics Hives 01/03/2023 documented as of this encounter (statuses as of 01/18/2023) Medications Medication Sig Dispensed Refills Start Date [...] and dinner) 1 Kit 0 01/12/2023 Active [employer] Verio In Vitro Strip (Glucose Blood)Indications: t controlled gestational diabetes mellitus (GDM) in third trimester Use to test blood sugars 4 times daily (fasting, 1 hour after breakfast, lunch, and dinner) 125 Strip 6 01/12/2023 Active [facility] [facility] [employer] [facility] Lancets 30GIndications:Diet controlled gestational diabetes mellitus (GDM) in third trimester Use to test blood sugars 4 times daily (fasting, 1 hour after breakfast, lunch, and dinner) 200 Each 6 01/12/2023 Active documented as of this encounter (statuses as of 01/18/2023) Active Problems Problem Noted Date Supervision of high risk in th ird trimester 01/18/2023 with 34 completed weeks [...] MFM ADAPT consult complete. Enrolled in Current Health. Instructions provided to report blood sugars each week for MFM review Last Assessment & Plan: CONSIDERATIONS: Reviewed etiology and risks associated with gestational diabetes mellitus (GDM), including risks to , fetus, and maternal progression to Type 2 DM. Instructed on proper use of glucometer; supplies ordered, if indicated. Advised that life-long screening for diabetes is recommended every 1-3 years. RECOMMENDATIONS: Recommend monitoring blood sugars with daily fasting blood sugar (maintained at less than or equal to 95) and 1 hour postprandial measurements (maintained at less than or equal to 140). Medications should be adjusted to maintain these target values. Report levels to MFM (Maternal- Medicine) weekly. Recommend nutrition consult with RDN (Registered Dietitian Pump Operator). Lifestyle changes are also indicated including optimizing gestational weight gain and physical activity of 30 minutes per day, if not otherwise contraindicated in . Insulin is preferred if medications are indicated to optimize euglycemia. Metformin (preferred over glyburide) may also be used in some circumstances. Reviewed the risks and benefits of each. Recommend ultrasound, surveillance and delivery as follows: A1GDM, delivery should be accomplished by 41w0d. A2GDM, recommend growth assessment with MFM every 4 weeks, initiate surveillance at 32 weeks and continue until delivery at 39 weeks. Recommend intrapartum monitoring every 1-2 hours (A2GDM) or every 4 hours (A1GDM) and treat with insulin if indicated. Recommend 2-hour glucose tolerance testing with 75-gram glucose load 6-8 weeks . , normal first 01/08/2023 Overview: Transferring care at 33w2d. Awaiting records Needs 3hr GTT Abnormal glucose tolerance in mother com plicating 01/08/2023 Overview: Needs 3hr GTT Estimated Date of Delivery Comme nts Yes 02/24/2023 Based on Other B asis, based on early first trimester scan done at [facility] signed documented as of this encounter (statuses as of 01/18/2023) Social History Tobacco Use Types Packs/Day Years Used Date Smoking Tobacco: Never Smokeless Tobacco: Never Alcohol Use Standard Drinks/Week Comments Not Currently 0 (1 standard drink = 0.6 oz pur e alcohol) Estimated Date of Delivery Comme nts Yes 02/24/2023 Based on Other B asis, based on early first trimester scan done at [facility] signed Sex Assigned at Date Recorded Female 01/03/2023 10:25 AM EDT Job Start Date Occupation Industry Not on file Not on file Not on file documented as of this encounter Progress Notes * JOSEPHINE Dumont - 01/18/2023 3:42 PM EDT MATERNAL MEDICINE CONSULT Delphine Bravo Consult date: 01/18/23 REFERRING PROVIDER: JOSEPHINE Krishnamurthy Patient location: HOME. I was in a hospital or clinic location. After connecting through televideo,patient was verified with two unique identifiers. Patient (or authorized legal sales representative gas service) was then informed that this was a Telemedicine visit and being conducted confidentially over secure lines. Methods to assure confidentiality were taken. Patient acknowledged consent and understanding of pr ivacy and security of the Telemedicine visit. The patient agreed to participate. Delphine Bravo is a 27 year old with intrauterine at 34w5d (Estimated Date of Delivery: 02/24/23 by first trimester ultrasound) who presents today for an MFM consult due to gestationaldiabetes and asthma. Patient has recently (32w3d) transferred her care from [facility]. Releaseof records has been completed and OB is awaiting records from previous provider. HPI/CURRENT : pre- BMI=class 1 obesity (86.2 kg (190 lb); 5' 3"); FOB Marek; complicated by above. Genetic testing: Per patient: negative Latisha Galeano HBP Problems (from 01/03/23 to present) Problem Noted Resolved Maternal asthma complicating 01/16/2023 by JOSEPHINE Dumont No Overview Addendum 01/18/2023 3:42 PM by JOSEPHINE Dumont Managed with Albuterol as needed 01/16/23 last albuterol use: within the past 1 week Also Singulair and Breo Ellipta inhaler Denies hospitalizations or intubations due to asthma Diet controlled gestational diabetes mellitus (GDM) in third trimester 01/12/2023 by JOSEPHINE Krishnamurthy No Overview Addendum 01/18/2023 3:41 PM by JOSEPHINE Dumont Diagnosed at 33 weeks Nutritional consult ordered 01/11/2023 GTT: Fastin 1 hour: 230 2 hour: 149 01/18/23: MFM ADAPT consult complete. Enrolled in Current Health. Instructions provided to report blood sugars each week for MFM review I have reviewed this patient's previous OB ultrasound reports, pertinent labwork and testing provided by her referring OB provider. Current Outpatient Medications Medication Sig Dispense Refill Albuterol Sulfate (5 MG/ML) 0.5% Inhalation Nebulization Solution Inhale via nebulizer every 6 hours as needed for Wheezing. (Patient not taking: Reported on 01/18/2023) Famotidine 40 MG Oral Tablet (Pepcid) Take 0.5 Tablets by mouth in the morning and 0.5 Tablets before bedtime. Fluticasone Furoate-Vilanterol 200-25 MCG/ACT Inhalation Aerosol Powder Breath Activated Inhale by mouth daily. Montelukast Sodium 5 MG Oral Tablet Chewable Take 1 Tablet by mouth at bedtime. [employer] Delica Lancets 30G Use to test blood sugars 4 times daily (fasting, 1 hour after breakfast, lunch, and dinner) 200 Each 6 Tripviio Flex System w/Device Kit Use to test blood sugars 4 times daily (fasting, 1 hour after breakfast, lunch, and dinner) 1 Kit 0 [employer] Verio In Vitro Strip (Glucose Blood) Use to test blood sugars 4 times daily (fasting, 1 hour after breakfast, lunch, and dinner) 125 Strip 6 27-0.8 MG Oral Tablet Take 1 Tablet by mouth daily at noon. No current facility-administered medications for this visit. Review of patient's allergies indicates: Allergen Reactions Lexapro [Escitalopram] hallucinations Sulfa Antibiotics Hives OB History Para Term AB Living 1 0 0 0 0 0 SAB IAB Ectopic Multiple Live Births 0 0 0 0 0 # Outcome Date GA Lbr Compa/2nd Weight Sex Delivery Anes PTL Lv 1 Current Obstetric Comments 2022: FOB 1: Marek Bravo, age 28, healthy Past Medical History: Diagnosis Date Anemia Anxiety Asthma 2002 Endometriosis Past Surgical History: Procedure Laterality Date DENTAL SURGERY PROCEDURE NEC RI EXPLORATORY LAPAROTOMY CELIOTOMY W/WO BIOPSY SPX dx endometriosis Family History Problem Relation Age of Onset COPD Mother No Known Problems Father No Known Problems Sister Ovarian cancer Grandmother (Paternal) Ovarian cancer Aunt (Paternal) Ovarian cancer Aunt (Paternal) Breast Cancer Aunt (Paternal) Social History Tobacco Use Smoking status: Never Smokeless tobacco: Never Substance Use Topics Alcohol use: Not Currently Drug use: Not Currently REVIEW OF SYSTEMS: headaches: no nausea/vomiting: denies reports movement: yes abdominal pain/tenderness/cramping/contractions: no vaginal bleeding: no vaginal leaking of fluid: no all other systems negative PHYSICAL EXAM: LMP 04/30/2022 (Approximate) General: Well appearing Psych: Alert to time, place, and person and Pleasant DISCUSSION/RECOMMENDATIONS: Problem List Items Addressed This Visit Laitsha Galeano HBP Diet controlled gestational diabetes mellitus (GDM) in third trimester - Primary CONSIDERATIONS: Reviewed etiology and risks associated with gestational diabetes mellitus (GDM), including risks topregnancy, fetus, and maternal progression to Type 2 DM. Instructed on proper use of glucometer; supplies ordered, if indicated. Advised that life-long screening for diabetes is recommended every 1-3 years. RECOMMENDATIONS: Recommend monitoring blood sugars with daily fasting blood sugar (maintained at less than or equal to 95) and 1 hour postprandial measurements (maintained at less than or equal to 140). Medications should be adjusted to maintain these target values. Report levels to MFM (Maternal- Medicine) weekly. Recommend nutrition consult with RDN (Registered Dietitian Pump Operator). Lifestyle changes are also indicated including optimizing gestational weight gain and physical activity of 30 minutes per day, if not otherwise contraindicated in . Insulin is preferred if medications are indicated to optimize euglycemia. Metformin (preferred overglyburide) may also be used in some circumstances. Reviewed the risks and benefits of each. Recommend ultrasound, surveillance and delivery as follows: A1GDM, delivery should be accomplished by 41w0d. A2GDM, recommend growth assessment with MFM every 4 weeks, initiate surveillance at 32 weeks and continue until delivery at 39 weeks. Recommend intrapartum monitoring every 1-2 hours (A2GDM) or every 4 hours (A1GDM) and treat with insulin if indicated. Recommend 2-hour glucose tolerance testing with 75-gram glucose load 6-8 weeks . Maternal asthma complicating CONSIDERATIONS: Asthma symptoms may improve, worsen or remain unchanged in severity in . Asthma is generally managed the same in as in the non- patient, as asthma-controlmedications are considered safe in . If asthma [...] therapy for all patients except those with intermittentasthma. If patients are routinely requiring rescue inhaler [...] weeks. surveillance with growth ultrasounds and non-stress testsshould be considered starting at 32 weeks. Follow up ultrasound with Maternal Medicine is scheduled on 01/23/[address] Barbosa for anatomy scan secondary to gestational diabetes, asthma and recent transfer of care. Patient is aware of upcoming MFM appointment. Total time spent face to face in this visit was 30 minutes of which more than 50% was spent discussing and counseling the patient/caregiver(s) regarding gestational diabetes, diet, exercise and asthma. Total time spent on this date of service including non face to face was 40 minutes in preparation, delivery, and documentation of care provided to Delphine Bravo, excluding time spent in performance of separately billable services. Details outlined above in impression and plan. JOSEPHINE Dumont 01/18/2023 3:49 PM documented in this encounter Miscellaneous Notes * Pt Handout (on AVS) - JOSEPHINE Dumont - 01/18/2023 3:53 PM EDT Images from the original note were not included. Wru[employer]-R[employer]: Checking Your Blood Sugar - Video This video shows the steps to check your blood sugar. To view the video go to this web address: [email or web address] Or, scan this QR code with your smart phone Last Reviewed Date: 10/21/202019998618-4552 [employer] ([employer]). All rights reserved. This information is not intended as a substitute for professional medical care. Always follow your healthcare professional's instructions. * Pt Handout (on AVS) - JOSEPHINE Dumont - 01/18/2023 3:53 PM EDT Images from the original note were not included. [address] Understanding Carbohydrates A car needs the right type of fuel to run. And you need the right kind of food to function. To keepyour energy level up, your body needs food that has carbohydrates (carbs). But carbs raise blood sugar levels higher and faster than other kinds of food. Your dietitian will work with you to figure out the amount of carbs you need. Carbs come in 3 types: starches, sugars, and fiber. Starches Starches are found in grains, some vegetables, and beans. Grain products include bread, pasta, cereal, and tortillas. Starchy vegetables include potatoes, peas, corn, curran beans, yams, and squash. Kidney beans, buchanan beans, black beans, garbanzo beans, and lentils also have starches. Sugars Sugars are found naturally in many foods. Or they can be added. Foods that contain natural sugar include fruits and fruit juices, dairy products, honey, and molasses. Added sugars are found in most desserts, processed foods, candy, regular soda, and fruit drinks. These are very helpful to treat lowblood sugar (hypoglycemia). They give you sugar quickly. Try to keep at least 15 to 20 grams of these simple sugars with you at all times. Eat or drink these if you start to have symptoms of low blood sugar. Fiber Fiber comes from plant foods. Your body can't digest most fiber. Instead of raising blood sugar levels like other carbs, fiber stops blood sugar from rising too fast. Fiber is found in fruits, vegetables, whole grains, beans, peas, and many nuts. Carb counting Keep track of the amount of carbs you eat. This can help you keep the right balance of carbs, physical activity, and medicine. The amount of carbs you need will be different from what other people need. How much you need depends on many things. These include your health, the medicines you take, andhow active you are. Your healthcare team will help you figure out the right amount of carbs for you. You may start with 45 to 60 grams of carbs per meal, depending on your case. Carb counting is a system that helps you keep track of the carbohydrates you eat at each meal. Carbs come from many foods. These include grains, starchy vegetables, fruit, milk, beans, and snackfoods. You can either count carbohydrate grams or carbohydrate servings. When you count carbohydrate servings, 1 carbohydrate serving = 15 grams of carbohydrates. Here are some examples of foods that have about 15 grams of carbs (1 serving of carbohydrates): 1/2 cup of canned or frozen fruit A small piece of fresh fruit (4 ounces) 1 slice of bread 1/2 cup of oatmeal 1/3 cup of rice 4 to 6 crackers 1/2 Albanian muffin 1/2 cup of black beans 1/4 of a large baked potato (3 ounces) 2/3 cup of plain fat-free yogurt 1 cup of soup 1/2 cup of casserole 6 chicken nuggets 7-xfuz-peucxi brownie or cake without frosting 2 small cookies 1/2 cup of ice cream or sherbet Carb counting is easier when food labels are available. Look at the label to see how many grams of total carbs per serving the food contains. Then you can figure out how much you should eat. If your food doesn't have a nutrition label, you should be able to get an idea how many carbs there are per serving by using a book or website. Two very important lines to look at on the label are the serving size and the total carbohydrate amount per serving. Here are some tips for using food labels to count your carbs: Check the serving size. The information on the label is based on that serving size. If you eat more than the listed serving size, you may have to double or triple the other information on the label. Check the total grams of carbs. Total carbohydrate from the label includes sugar, starch, and fiber. Be sure to use the total carbohydrate number (minus the fiber) and not sugar alone. Know how many grams of carbs you can have. Be familiar with the matching portion sizes. Compare labels. Compare the labels of different products. Look at serving sizes and total carbs to find the products that work best for you. Don't forget protein and fat. With the focus on carb counting, it might be easy to forget protein and fat in your meals. Don't forget to include sources of protein and healthy fat to balance your meals. Also watch how much salt (sodium) you eat. This is especially true if you have high blood pressure. If you have diabetes, limit the amount of sodium to less than 2,300 mg a day. It?s also important to be consistent with the amount of carbs and time you eat when taking a fixed dose of diabetes medicine. Work with your healthcare provider or dietitian if you need more help. They can help you keep track of your carbs. They can also help you figure out how many grams of carbs you should have. Last Reviewed Date: 03/23/202119999174-1074 [employer] ([employer]). All rights reserved. This information is not intended as a substitute for professional medical care. Always follow your healthcare professional's instructions. * Pt Handout (on AVS) - JOSEPHINE Dumont - 01/18/2023 3:53 PM EDT Images from the original note were not included. Diabetes (Gestational) - Video This form of diabetes develops during . With it, the hormone insulin has problems helping the body turn blood glucose (commonly called blood sugar) into energy. In most cases, gestational diabetes can be controlled with no complications. It often goes away after . To view the video go to this web address: [email or web address]://bit.[email or web address]/[email or web address] Or, scan this QR code with your smart phone [employer]. * Pt Handout (on AVS) - JOSEPHINE Dumont - 01/18/2023 3:53 PM EDT Images from the original note were not included. Diabetes in - Video Two types of diabetes can occur during ?pre-existing diabetes, which will continue after , and gestational diabetes, which will go away after the baby is born. Diabetes is a condition in which your body doesn?t make enough insulin or you can?t use it correctly. This video offers details on how these two types diabetes can affect a . To view the video go to this web address: https://bit.ly/3xeVdla Or, scan this QR code with your smart phone Last Reviewed Date: 07/23/201919992708-0730 [employer] ([employer]). All rights reserved. This information is not intended as a substitute for professional medical care. Always follow your healthcare professional's instructions. * Pt Handout (on AVS) - JOSEPHINE Dumont - 01/18/2023 3:53 PM EDT Images from the original note were not included. Managing Gestational Diabetes - Video Being diagnosed with gestational diabetes can be stressful. But with proper care and management, you can stay healthy and deliver a healthy baby. In many cases, gestational diabetes goes away on its own after the mother gives . To view the video go to this web address: [email or web address] Or, scan this QR code with your smart phone 2019 [employer]. * Assessment & Plan Note - JOSEPHINE Dumont - 01/18/2023 3:42 PM EDT Associated Problem(s): Maternal asthma complicating CONSIDERATIONS: Asthma symptoms may improve, worsen or remain unchanged in severity in . Asthma is generally managed the same in as in the non- patient, as asthma-controlmedications are considered safe in . If asthma [...] therapy for all patients except those with intermittentasthma. If patients are routinely requiring rescue inhaler [...] weeks. surveillance with growth ultrasounds and non-stress testsshould be considered starting at 32 weeks. * Assessment & Plan Note - JOSEPHINE Dumont - 01/18/2023 3:41 PM EDT Associated Problem(s): Diet controlled gestational diabetes mellitus (GDM) in third trimester CONSIDERATIONS: Reviewed etiology and risks associated with gestational diabetes mellitus (GDM), including risks topregnancy, fetus, and maternal progression to Type 2 DM. Instructed on proper use of glucometer; supplies ordered, if indicated. Advised that life-long screening for diabetes is recommended every 1-3 years. RECOMMENDATIONS: Recommend monitoring blood sugars with daily fasting blood sugar (maintained at less than or equal to 95) and 1 hour postprandial measurements (maintained at less than or equal to 140). Medications should be adjusted to maintain these target values. Report levels to MFM (Maternal- Medicine) weekly. Recommend nutrition consult with RDN (Registered Dietitian Pump Operator). Lifestyle changes are also indicated including optimizing gestational weight gain and physical activity of 30 minutes per day, if not otherwise contraindicated in . Insulin is preferred if medications are indicated to optimize euglycemia. Metformin (preferred overglyburide) may also be used in some circumstances. Reviewed the risks and benefits of each. Recommend ultrasound, surveillance and delivery as follows: A1GDM, delivery should be accomplished by 41w0d. A2GDM, recommend growth assessment with MFM every 4 weeks, initiate surveillance at 32 weeks and continue until delivery at 39 weeks. Recommend intrapartum monitoring every 1-2 hours (A2GDM) or every 4 hours (A1GDM) and treat with insulin if indicated. Recommend 2-hour glucose tolerance testing with 75-gram glucose load 6-8 weeks . documented in this encounter Plan of Treatment Upcoming Encounters Date Type Specialty Care Team Description 01/22/2023 Office Visit Gynecology Obstetrics Lidia Hemphill PA-C [address] [place] [id number] 01/23/2023 Office Visit Maternal Medicine Ricki Barbosa MD [address] [place] [address] 01/23/2023 Imaging Radiology Scheduled Referrals Name Type Priority Associated Diagnoses Orde r Schedule REMOTE PATIENT MONITORING REFERRAL Referral Within 3 days (urgent) Diet controlled gestational diabetes mellitus (GDM) in third trimester Ordered: 01/18/2023 Health Maintenance Due Date Last Done Comments [...] diabetes mellitus (GDM) in third trimester- Primary Maternal asthma complicating Other current maternal conditions classifiable elsewhere, complicating , childbirth, or the puerperium, unspecified as to episode of care Supervision of high risk in third trimester Unspecified high-risk with 34 completed weeks gestation documented in this encounter Care Teams Calender Runner Relationship Specialty Start Date End Date Kalia Connor CRNP [address] [place] [id number] PCP - General Nurse Practitioner 12/26/22 documented as of this encounter
--- OUTSIDE RECORDS SUMMARY | 2023-03-02 14:18 | External Medical Summary | Summary of Care ---
Author Name Unknown Organization [facility] Address [address] [place] [address] Phone [phone] Care Team Providers Care Ruby Engineer Name Role Phone Kalia Connor Primary Care Prov ider Reason for Visit * Reason Comments Return Visit Encounter Details Date Type Department Care Team Description 01/22/2023 Office Visit Gynecology/Obstetrics [facility] [address] [place] [address] Lidia Hemhpill PA-C [address] [place] [address] Encounter for supervision of normal first in third trimester*; Abnormal glucose tolerance in mother complicating ; Diet controlled gestational diabetes mellitus (GDM) in third trimester; Maternal asthma complicating Allergies Active Allergy Reactions Severity Noted Date Comments Escitalopram 01/08/2023 hallucinations Sulfa Antibiotics Hives 01/03/2023 documented as of this encounter (statuses as of 01/22/2023) Medications Medication Sig Dispensed Refills Start Date [...] as of this encounter (statuses as of 01/22/2023) Active Problems Problem Noted Date Supervision of [...] Recommend nutrition consult with RDN (Registered Dietitian Administrative Technician). Lifestyle changes are also indicated including optimizing [...] on early first trimester scan done at [facility] / [facility] signed documented as of this encounter (statuses as of 01/22/2023) Social History Tobacco Use Types Packs/Day Years Used Date Smoking Tobacco: Never Smokeless Tobacco: Never Alcohol Use Standard Drinks/Week Comments Not Currently 0 (1 standard drink = 0.6 oz pur e alcohol) Estimated Date of Delivery Comme nts Yes 02/24/2023 Based on Other B asis, based on early first trimester scan done at [facility] / [facility] signed Sex Assigned at Date Recorded Female 01/03/2023 10:25 AM EDT Job Start Date Occupation Industry Not on file Not on file Not on file documented as of this encounter Last Filed Vital Signs Vital Sign Reading Time Taken Comments Blood Pressure 100/62 01/22/2023 7:42 AM EDT Pulse - - Temperature - - Respiratory Rate - - Oxygen Saturation - - Inhaled Oxygen Concentration - - Weight 97.8 kg (215 lb 9.6 oz) 01/22/2023 7:42 A M EDT Height 160 cm (5' 3") 01/22/2023 7:42 AM EDT Body Mass Index 38.19 01/22/2023 7:42 AM EDT documented in this encounter Progress Notes * Lidia Hemphill PA-C - 01/22/2023 7:49 AM EDT 35w2d Called in on Sunday, 3 days ago after noticing gush of fluid into underwear after using bathroom and urinating. Told to monitor. No odor, doesn't think it was urine. States not enough to fill pad. Nobleeding, cramping/contractions. No further leaking or abnormal discharge. Has had no further issues. Baby is very active. Advised call if it happens again or any other concerns. Still waiting on records, pt will sign release or records at check out. Has ultrasound with MFM d/t GDM tomorrow. Reports BG going well, admits was not the best of checking over the weekend. Counseled on GBS next visit. Call with questions or concerns. Asking for breast pump script. Lidia Hemphill PA-C * Rupa Camara LPN - 01/22/2023 7:46 AM EDT 35w2d Pt reports Sunday after using the restroom she was washing her hands and felt a gush, she made sureit wasn't urine, reports that she called office after it happened documented in this encounter Plan of Treatment Upcoming Encounters Date Type Specialty Care Team Description 01/23/2023 Office Visit Maternal Medicine [facility]Ricki madrid MD [address] [place] [address] 01/23/2023 Imaging Radiology 01/30/2023 Office Visit Gynecology Obstetrics Backer, JOSEPHINE Carey [address] [place] [address] 02/06/2023 Office Visit Gynecology Obstetrics Tisha Kimble CRNP [address] [place] [address] 02/13/2023 Office Visit Gynecology Obstetrics Lashell Garcia, [facility] [address] [facility] [address] 02/22/2023 Office Visit Gynecology Obstetrics Tisha Kimble CRNP [address] [place] [address] Health Maintenance Due Date Last Done Comments [...] third trimester- Primary Supervision of normal first Abnormal glucose tolerance in mother complicating Abnormal maternal glucose tolerance, complicating , childbirth, or the puerperium, unspecified as to episode of care Diet controlled gestational diabetes mellitus (GDM) in third trimester Maternal asthma complicating Other current maternal conditions classifiable elsewhere, complicating , childbirth, or the puerperium, unspecified as to episode of care documented in this encounter Care Teams Ruby Engineer Relationship Specialty Start Date End Date Kalia Connor CRNP [address] [place] [address] PCP - General Nurse Practitioner 12/26/22 documented as of this encounter
--- OUTSIDE RECORDS SUMMARY | 2023-03-02 14:18 | External Medical Summary | Summary of Care ---
Author Name Unknown Organization [facility] Address [address] [place] [address] Phone [phone] Care Team Providers Care Dispatcher Service Chief Name Role Phone Kalia Connor Primary Care Prov ider Reason for Visit * Reason Onset Date Comments Home Monitoring Telephone 01/23/2023 Encounter Details Date Type Department Care Team Description 01/23/2023 Telephone Care Coordination [address] [place], [place] [id number] [facility] American Sign Language Teacher [address] [place] [address] Home Monitoring Telephone Allergies Active Allergy Reactions [...] and dinner) 1 Kit 0 01/12/2023 Active [employer] Verio In Vitro Strip (Glucose Blood)Indications: t controlled gestational diabetes mellitus (GDM) in third trimester Use to test blood sugars 4 times daily (fasting, 1 hour after breakfast, lunch, and dinner) 125 Strip 6 01/12/2023 Active [employer] Delica Lancets 30GIndications:Diet controlled gestational diabetes [...] 01/18/23: MFM ADAPT consult complete. Enrolled in [facility]. Instructions provided to report blood sugars each week for MFM review 01/23/23: Received message that [facility] unable to get in contact [...] on early first trimester scan done at [facility] / [facility] signed documented as of this encounter [...] on early first trimester scan done at [facility] / [facility] signed Sex Assigned at Date Recorded Female 01/03/2023 10:25 AM EDT Job Start Date Occupation Industry Not on file Not on file Not on file documented as of this encounter Miscellaneous Notes * Telephone Encounter - JOSEPHINE Moody - 01/23/2023 1:32 PM EDT Message sent to patient regarding same. JOSEPHINE Ohara 01/23/2023 1:32 PM * Telephone Encounter - Fior Lovell American Sign Language Teacher - 01/23/2023 1:21 PM EDT I have been unsuccessful in out reach attempts for Current Health Diabetes Management in .Attempts made on 01/19, 01/22, and 01/23. My G message also sent. Loy Scruggs Community Programs Specialist documented in this encounter Plan of Treatment Upcoming Encounters Date Type Specialty Care Team Description 01/30/2023 Office Visit Gynecology Obstetrics Backer, JOSEPHINE Carey [address] [place] [address] 02/06/2023 Office Visit Gynecology Obstetrics Tisha Kimble CRNP [address] [place] [address] 02/13/2023 Office Visit Gynecology Obstetrics Lashell Garcia, [facility] [address] [place] [address] 02/22/2023 Office Visit Gynecology Obstetrics Tisha Kimble CRNP [address] [place] [address] Health Maintenance Due Date Last Done Comments [...] filedocumented as of this encounter Care Teams Dispatcher Service Chief Relationship Specialty Start Date End Date Kalia Connor CRNP [address] [place] [address] PCP - General Nurse Practitioner 12/26/22 documented as of this encounter
--- OUTSIDE RECORDS SUMMARY | 2023-03-02 14:18 | External Medical Summary ---
Author Name Unknown Address Unknown Organization K01:[facility] [place] [address] [facility] [address] Laboratory Report Ordering Provider Test Date Status MACIEJ HOOD 01/30/2023 08:46:59 Final Observation Date Value Abnormality Reference (Units ) Status Streptococcus agalactiae DNA [Presence] in Specimen by SRINIVAS with probe detection 01/30/2023 08:46:59 Negative Negative Final No Group B Streptococcus det ected by culture-enhanced PCR (amplified probe).
The collection of vaginal/rectal swab specimen combinations (FDA approved specimen type) is optimal for the detection of Group B Streptococcus. Single source collection (vaginal only or rectal only) or alternate specimen sources may lead to false negative results. Performing Location [facility] [place] [address] [facility] [address]
--- OUTSIDE RECORDS SUMMARY | 2023-03-02 14:18 | External Medical Summary | Summary of Care ---
Author Name Unknown Organization [facility] Address [address] [place] [address] Phone [phone] Care Team Providers Care Hr Advisor Name Role Phone Kalia Connor Primary Care Prov ider Encounter Details Date Type Department Care Team Description 01/11/2023 Result Scan Unspecified Department <No scans attached> Allergies Active Allergy Reactions Severity Noted Date Comments Escitalopram 01/08/2023 hallucinations Sulfa Antibiotics Hives 01/03/2023 documented as of this encounter (statuses as of 01/11/2023) Medications Medication Sig Dispensed Refills Start Date [...] Activated Inhale by mouth daily. 0 Active documented as of this encounter (statuses as of 01/11/2023) Active Problems Problem Noted Date , normal first 01/08/2023 Overview: Transferring care at 33w2d. Awaiting records Needs 3hr GTT Abnormal glucose tolerance in mother com plicating 01/08/2023 Overview: Needs 3hr GTT Estimated Date of Delivery Comme nts Yes 02/24/2023 Based on Other B asis documented as of this encounter (statuses as of 01/11/2023) Social History Tobacco Use Types Packs/Day Years Used Date Smoking Tobacco: Never Smokeless Tobacco: Never Alcohol Use Standard Drinks/Week Comments Not Currently 0 (1 standard drink = 0.6 oz pur e alcohol) Estimated Date of Delivery Comme nts Yes 02/24/2023 Based on Other B asis Sex Assigned at Date Recorded Female 01/03/2023 10:25 AM EDT Job Start Date Occupation Industry Not on file Not on file Not on file documented as of this encounter Plan of Treatment Upcoming Encounters Date Type Specialty Care Team Description 01/22/2023 Office Visit Gynecology Obstetrics Lidia Hemphill PA-C [address] [place] [address] Health Maintenance Due Date Last Done Comments Hepatitis B (1 of 3 - 3-dose series) 1997 COVID-19 Vaccine (#1) 1997 GARDASIL-HPV IMMUNIZATION SE MARK (1 - 2-dose series) 02/13/2008 Depression Screening 2009 HIV Screening 02/13/2012 Hepatitis C Screening 2015 DTaP,Tdap,and Td Vaccines (1 - Tdap) 02/13/2016 Pap Smear 2018 Influenza Vaccine (FLU shot) (#1) 2022 MENINGOCOCCAL (MENACTRA/MENVEO) Aged Out No longer eligible based on patient's age to complete this topic Pneumococcal Vaccine: Pediat rics (0 to 5 Years) and At-Risk Patients (6 to 64 Years) Aged Out No longer eligible b ased on patient's age to complete this topic documented as of this encounter Medical Devices Not on filedocumented as of this encounter Procedures Procedure Name Priority Date/Time Associated Diagnosis Comments OUTSIDE LAB RESULTS 01/11/2023 documented in this encounter Results * OUTSIDE LAB RESULTS (01/11/2023) 01/11/2023 No Physician Data Unknown LABORATORY documented in this encounter Care Teams Hr Advisor Relationship Specialty Start Date End Date Kalia Connor CRNP [address] [place] [address] PCP - General Nurse Practitioner 12/26/22 documented as of this encounter
--- OUTSIDE RECORDS SUMMARY | 2023-03-02 14:18 | External Medical Summary | Summary of Care ---
Author Name Unknown Organization [facility] Address [address] [place] [address] Phone [phone] Care Team Providers Care Forestry Professor Name Role Phone Kalia Connor Primary Care Prov ider Encounter Details Date Type Department Care Team Description 01/23/2023 Office Visit Base Filler Operator OB Maternal Medicine [facility] Gerson Pierce [address] [place] [address] [address] [place] [address] Ricki Barbosa MD [address] [place], [place] [id number] Diet controlled gestational diabetes mellitus (GDM) in third trimester*; Maternal asthma complicating ; 35 weeks gestation of ; Encounter for supervision of other normal , second trimester Allergies Active Allergy Reactions Severity Noted [...] Activated Inhale by mouth daily. 0 Active [employer] Clean Verio Flex System w/Device KitIndications:Diet controlled gestational diabetes mellitus (GDM) in third trimester Use to test blood sugars 4 times daily (fasting, 1 hour after breakfast, lunch, and dinner) 1 Kit 0 01/12/2023 Active [employer]Touch Verio In Vitro Strip (Glucose Blood)Indications: t controlled gestational diabetes mellitus (GDM) in third trimester Use to test blood sugars 4 times daily (fasting, 1 hour after breakfast, lunch, and dinner) 125 Strip 6 01/12/2023 Active [employer] Delica Lancets 30GIndications:Diet controlled gestational diabetes mellitus (GDM) in third trimester Use to test blood sugars 4 times daily (fasting, 1 hour after breakfast, lunch, and dinner) 200 Each 6 01/12/2023 Active Breast Pump For lactating mother. 1 Each 0 01/22/2023 Active documented as of this encounter (statuses as of 01/23/2023) Active Problems Problem Noted Date 35 weeks gestation of 01/24/20 23 Supervision of high risk in ird trimester [...] 01/18/23: MFM ADAPT consult complete. Enrolled in [facility]. Instructions provided to report blood sugars each week for MFM review Last Assessment & Plan: I reviewed the [...] on early first trimester scan done at [facility] / [facility] signed documented as of this encounter [...] on early first trimester scan done at [facility] / [facility] signed Sex Assigned at Date Recorded Female 01/03/2023 10:25 AM EDT Job Start Date Occupation Industry Not on file Not on file Not on file documented as of this encounter Progress Notes * Ricki Barbosa MD - 01/23/2023 8:11 AM EDT MATERNAL MEDICINE VISIT Delphine Bravo is at 35w3d who presents to [facility] for an ultrasound and follow-up of her high risk . The patient is currently 35 weeks and 3 days gestation comes in for evaluation of anatomy dueto gestational diabetes controlled by diet alone. She is being seen today by Maternal- Medicine for the following reasons: Problem List Items Addressed This Visit Diet controlled gestational diabetes mellitus (GDM) in third trimester - Primary I reviewed the ultrasound with her. The anatomy that was visualized is unremarkable. However,it is limited due to the advanced gestational age. The overall estimated weight is consistentwith the 36 percentile for the gestational age and the fetus is in the vertex presentation. The amniotic fluid volume is normal at 18 cm. As she was 35 weeks of gestation and her blood glucoses are controlled by diet alone, there is no clinical indication for return. Relevant Orders [facility] US PREG FOLLOW UP EACH FETUS Maternal asthma complicating Relevant Orders [facility] US PREG FOLLOW UP EACH FETUS 35 weeks gestation of Relevant Orders [facility] US PREG FOLLOW UP EACH FETUS Other Visit Diagnoses Encounter for supervision of other normal , second trimester Relevant Orders [facility] US PREG FOLLOW UP EACH FETUS We reviewed today's ultrasound findings. (For full report, please refer to ultrasound report provided separately). Ms. Bravo's questions were answered to her satisfaction. Ms. Bravo was instructed to notify her primary public housing interviewer if she felt regular contractions (approximately every 10 mins), leaking of fluid, vaginal bleeding or if movement decreased. Thank you for allowing us to participate in the care of this patient. Please call with any questions. Ricki Barbosa MD 01/23/2023 8:11 AM documented in this encounter Miscellaneous Notes * Assessment & Plan Note - Ricki Barbosa MD - 01/23/2023 8:22 AM EDT Associated Problem(s): Diet controlled gestational diabetes mellitus (GDM) in third trimester I reviewed the ultrasound with her. The anatomy that was visualized is unremarkable. However,it is limited due to the advanced gestational age. The overall estimated weight is consistentwith the 36 percentile for the gestational age and the fetus is in the vertex presentation. The amniotic fluid volume is normal at 18 cm. As she was 35 weeks of gestation and her blood glucoses are controlled by diet alone, there is no clinical indication for return. documented in this encounter Plan of Treatment Upcoming Encounters Date Type Specialty Care Team Description 01/30/2023 Office Visit Gynecology Obstetrics Carrie Arguello CRNP [address] [place] [address] 02/06/2023 Office Visit Gynecology Obstetrics Tisha Kimble CRNP [address] [place] [address] 02/13/2023 Office Visit Gynecology Obstetrics Lashell Garcia CNM [address] [place] [address] [place] [address] 02/22/2023 Office Visit Gynecology Obstetrics Tisha Kimble CRNP [address] [place] [address] Scheduled Orders Name Type Priority Associated Diagnoses Orde r Schedule MFM US PREG FOLLOW UP EACH FETUS Medical Imaging Routine Diet controlled gestational diabetes mellitus (GDM) in third trimester Maternal asthma complicating 35 weeks gestation of Encounter for supervision of other normal , second trimester 3 Occurrences starting 01/23/2023 until 07/25/2023 Health Maintenance Due Date Last Done Comments [...] puerperium, unspecified as to episode of care 35 weeks gestation of state, incidental Encounter for supervision of other normal , second trimester documented in this encounter Care Teams Forestry Professor Relationship Specialty Start Date End Date Kalia Connor CRNP [address] [place] [address] PCP - General Nurse Practitioner 12/26/22 documented as of this encounter
--- OUTSIDE RECORDS SUMMARY | 2023-03-02 14:18 | External Medical Summary | Summary of Care ---
Author Name Unknown Organization [facility] Address [address] [place] [address] Phone [phone] Care Team Providers Care Squilgeer Name Role Phone Kalia Connor Primary Care Prov ider Reason for Referral * Evaluate & Treat - Unlimited Visits (Within 10 days (routine)) - Pending Review Specialty Diagnoses / Procedures Referred By Tere patterson Referred To Contact Paper Control Clerk / Nutrition Services Diagnoses Diet controlled gestational diabetes mellitus (GDM) in third trimester Marcos Kimble CRNP [address] [place] [address] Referral ID Status Reason Start Date Expiration Date Visits Requested Visits Authorized [id number] Pending Review Specialty Services Required 01/12/[phone] Question Answer Is the patient ? Yes Referral Priority Within 10 days (routine) Comments This referral is for Diabetes Self-Management Training (DSMT) by a recognized [place] [employer] (ADA) perinatal educator: Nurse (RN), Registered Dietitian Tape Cutter (RDN), and/or Diabetes Medical Nutrition Therapy (MNT) Management (dietitian only). Diabetes educators are responsible for assessing the participant's diabetes education needs, and providing diabetes self-management training in accordance with the standards set by the ADA for DSMT. Any adjustment in diabetes therapy will be made within the guidelines of standards of practice and [employer] approved policies and procedures. I understand that the perinatal educator will keep me informed. Areas of Education: Pathophysiology Nutrition Physical Activity Medications Monitoring Acute Complications Chronic Complications Psychosocial Management Promote Health/Behavior Change Participant will be offered 1:1 education training if there is a lack of classes available within 2 months. Providers can also order 1:1 training if indicated for participant for the following reasons: 1:1 Training for Insulin Initiation Participant Inappropriate for Class Setting By my electronic signature, I understand that my patient will be offered the comprehensive ADA content area above unless deemed not appropriate of I specify otherwise here: * Evaluate & Treat - Unlimited Visits (Within 10 days (routine)) - Pending Review Specialty Diagnoses / Procedures Referred By Tere patterson Referred To Contact Obstetrics/Gynecology / Maternal Medicine Diagnoses Diet controlled gestational diabetes mellitus (GDM) in third trimester Marcos Kimble CRNP [address] [place] [address] Referral ID Status Reason Start Date Expiration Date Visits Requested Visits Authorized [id number] Pending Review Specialty Services Required 01/12/[phone] Question Answer Referral Priority Within 10 days (routine) Has the patient had a viability scan? No Reason for referral Diabetes Diabetes type Gestational Comments /Para: LMP: Patient's last menstrual period was 04/30/2022 (approximate). Patient is . MADI: 02/24/2023, by Other Basis Pre-Gravid BMI: 33.67 33W TRANSFER OF CARE. HAS HAD ULTRASOUNDS DONE BUT WE DO NOT HAVE TRANSFERRED RECORDS YET. I CAN NOT PUT IN A DATE OF VIABILITY SCAN, I DO NOT HAVE IT Reason for Visit * Reason Onset Date Comments Abnormal Test Results 01/12/2023 GDM Encounter Details Date Type Department Care Team Description 01/12/2023 Refill Gynecology/Obstetrics [facility] [address] [place] [address] Marcos Kimble CRNP [address] [place] [address] Diet controlled gestational diabetes mellitus (GDM) in third trimester*; Other specified related conditions, third trimester Allergies Active Allergy Reactions Severity Noted Date Comments Escitalopram 01/08/2023 hallucinations Sulfa Antibiotics Hives 01/03/2023 documented as of this encounter (statuses as of 01/12/2023) Medications Medication Sig Dispensed Refills Start Date [...] Activated Inhale by mouth daily. 0 Active [employer] Verio Flex System w/Device KitIndications:Diet controlled gestational diabetes mellitus (GDM) in third trimester Use to test blood sugars 4 times daily (fasting, 1 hour after breakfast, lunch, and dinner) 1 Kit 0 01/12/2023 Active [employer] In Vitro Strip (Glucose Blood)Indications: t controlled gestational diabetes mellitus (GDM) in third trimester Use to test blood sugars 4 times daily (fasting, 1 hour after breakfast, lunch, and dinner) 125 Strip 6 01/12/2023 Active [employer] Lancets 30GIndications:Diet controlled gestational diabetes mellitus (GDM) in third trimester Use to test blood sugars 4 times daily (fasting, 1 hour after breakfast, lunch, and dinner) 200 Each 6 01/12/2023 Active documented as of this encounter (statuses as of 01/12/2023) Active Problems Problem Noted Date Diet controlled gestational diabetes dagoberto litus (GDM) in third trimester 01/12/2023 Overview: Dx 33w6d , normal first 01/08/2023 Overview: Transferring care at 33w2d. Awaiting records Needs 3hr GTT Abnormal glucose tolerance in mother com plicating 01/08/2023 Overview: Needs 3hr GTT Estimated Date of Delivery Comme nts Yes 02/24/2023 Based on Other B asis documented as of this encounter (statuses as of 01/12/2023) Social History Tobacco Use Types Packs/Day Years [...] Miscellaneous Notes * Telephone Encounter - JOSEPHINE Krishnamurthy - 01/12/2023 3:56 PM EDTSigned Prescriptions: Disp Refills [employer] Flex System w/Device Kit 1 Kit 0 Sig: Use to testblood sugars 4 times daily (fasting, 1 hour after breakfast, lunch, and dinner)Authorizing Provider: MARCOS KIMBLE [employer] In Vitro Strip (Glucose Blo*125 St*6 Sig: Use to test blood sugars 4times daily (fasting, 1 hour after breakfast, lunch, and dinner)Authorizing Provider: MARCOS KIMBLE [employer] Lancets 30G 200 Ea*6 Sig: Use to test blood sugars 4 times daily (fasting, 1 hour after breakfast, lunch, and dinner)Authorizing Provider: MARCOS KIMBLE * Telephone Encounter - Bernadette Mcfarland LPN - 01/12/2023 2:43 PM EDT Pharmacy updated * Telephone Encounter - Bernadette Mcfarland LPN - 01/12/2023 2:06 PM EDT left message for patient to call office. Also sent MyG * Telephone Encounter - JOSEPHINE Krishnamurthy - 01/12/2023 11:38 AM EDT Thank you. Even without the last result, pt can be diagnosed with GDM. Please notify pt. Will need to check blood sugars 4 times a day. Ask pharmacy so I can send supplies. Will send MFM consult so they can monitor/manage her blood sugars. Fyi there is a good video on the [employer] website that can educate her on how to test her blood sugars * Telephone Encounter - Bernadette Mcfarland LPN - 01/12/2023 9:59 AM EDT There are three results that I am seeing, Fasting 99 1hr 230 2 hr 149 * Telephone Encounter - JOSEPHINE Krishnamurthy - 01/12/2023 9:43 AM EDT Pt had 3hr GTT done through [facility]. I am only able to see 2 of the results. Could you either check with their lab or call the pt and see what the rest of the results are? documented in this encounter Plan of Treatment Upcoming Encounters Date Type Specialty Care Team Description 01/22/2023 Office Visit Gynecology Obstetrics Lidia Hemphill PA-C [address] [facility] [place] [address] Scheduled Orders Name Type Priority Associated Diagnoses Orde r Schedule MFM US MATERNAL 1ST FETUS Medical Imaging Routine Diet controlled gestational diabetes mellitus (GDM) in third trimester Other specified related conditions, third trimester Expected: 01/12/2023, Expires: 2024 Scheduled Referrals Name Type Priority Associated Diagnoses Orde r Schedule MATERNAL MEDICINE REFERRAL OP Referral Within 10 days (routine) Diet controlled gestational diabetes mellitus (GDM) in third trimester Ordered: 01/12/2023 DIABETES MANAGEMENT EDUCATION (ADA) REFERRAL Referral Within 10 days (routine) Diet controlled gestational diabetes mellitus (GDM) in third trimester Ordered: 01/12/2023 Health Maintenance Due Date Last Done Comments Hepatitis B (1 of 3 - 3-dose series) 1997 COVID-19 Vaccine (#1) 1997 GARDASIL-HPV IMMUNIZATION SE MRAK (1 - 2-dose series) 02/13/2008 Depression Screening [...] diabetes mellitus (GDM) in third trimester- Primary Other specified related conditions, third trimester documented in this encounter Care Teams Squilgeer Relationship Specialty Start Date End Date Kalia Connor CRNP [address] [place] [address] PCP - General Nurse Practitioner 12/26/22 documented as of this encounter
--- OUTSIDE RECORDS SUMMARY | 2023-03-02 14:18 | External Medical Summary | Summary of Care ---
Author Name Unknown Organization [facility] Address [address] [place] [address] Phone [phone] Care Team Providers Care Rolled Materials Worker Name Role Phone Kalia Connor Primary Care Prov ider Encounter Details Date Type Department Care Team Description 01/23/2023 Office Visit Weather Stripper OB Maternal Medicine [facility] Gerson Pierce [address] [place] [address] [address] [place] [address] Ricki Barbosa MD [address] [place], [place] [id number] Diet controlled gestational diabetes mellitus (GDM) in [...] Activated Inhale by mouth daily. 0 Active [employer] Verio Flex System w/Device KitIndications:Diet controlled gestational diabetes mellitus (GDM) in third trimester Use to test blood sugars 4 times daily (fasting, 1 hour after breakfast, lunch, and dinner) 1 Kit 0 01/12/2023 Active [employer] Verio In Vitro Strip (Glucose Blood)Indications: t controlled gestational diabetes mellitus (GDM) in third trimester Use to test blood sugars 4 times daily (fasting, 1 hour after breakfast, lunch, and dinner) 125 Strip 6 01/12/2023 Active [employer] Delica Lancets 30GIndications:Diet controlled gestational diabetes mellitus [...] 01/18/23: MFM ADAPT consult complete. Enrolled in [facility]. Instructions provided to report blood sugars [...] on early first trimester scan done at [facility] signed documented as of this encounter [...] on early first trimester scan done at [facility] / [facility] signed Sex Assigned at Date Recorded Female 01/03/2023 10:25 AM EDT Job Start Date Occupation Industry Not on file Not on file Not on file documented as of this encounter Progress Notes * Ricki Barbosa MD - 01/23/2023 8:11 AM EDT MATERNAL MEDICINE VISIT Delphine Bravo is at 35w3d who presents to [facility] for an ultrasound and follow-up of her [...] no clinical indication for return. Relevant Orders [facility] US PREG FOLLOW UP EACH FETUS Maternal asthma complicating Relevant Orders [facility] US PREG FOLLOW UP EACH FETUS 35 weeks gestation of Relevant Orders [facility] US PREG FOLLOW UP EACH FETUS Other Visit Diagnoses Encounter for supervision of other normal , second trimester Relevant Orders [facility] US PREG FOLLOW UP EACH FETUS We reviewed today's ultrasound findings. (For full report, please refer to ultrasound report provided separately). Ms. Bravo's questions were answered to her satisfaction. Ms. Bravo was instructed to notify her primary director of tax services if she felt regular contractions (approximately every [...] Arguello CRNP [address] [place] [address] 02/06/2023 Office Visit Gynecology Obstetrics Tisha Kimble CRNP [address] [place] [address] 02/13/2023 Office Visit Gynecology Obstetrics Lashell Garcia CNM [address] [place] [address] [place] [address] 02/22/2023 Office Visit Gynecology Obstetrics Tisha Kimble CRNP [address] [place] [address] Scheduled Orders Name Type Priority Associated Diagnoses [...] trimester documented in this encounter Care Teams Rolled Materials Worker Relationship Specialty Start Date End Date Kalia Connor CRNP [address] [place] [address] PCP - General Nurse Practitioner 12/26/22 documented as of this encounter
--- OUTSIDE RECORDS SUMMARY | 2023-03-02 14:19 | External Medical Summary | Summary of Care ---
Author Name Unknown Organization [facility] Address [address] [place] [address] Phone [phone] Care Team Providers Care Precision Machinist Name Role Phone Kalia Connor Primary Care Prov ider Encounter Details Date Type Department Care Team Description 01/11/2023 Result Scan Unspecified Department Tisha Kimble CRNP [address] [place] [address] <No scans attached> Allergies Active Allergy Reactions [...] Hemphill PA-C [address] [place] [address] Health Maintenance Due Date Last Done Comments [...] Results * OUTSIDE LAB RESULTS (01/11/2023) 01/11/2023 [facility] documented in this encounter Care Teams Precision Machinist Relationship Specialty Start Date End Date Kalia Connor CRNP [address] [place] [address] PCP - General Nurse Practitioner 12/26/22 documented as of this encounter
--- OUTSIDE RECORDS SUMMARY | 2023-03-02 14:19 | External Medical Summary | Summary of Care ---
Author Name Unknown Organization [facility] Address [address] [place] [address] Phone [phone] Care Team Providers Care Tub Puller Name Role Phone Kalia Connor Primary Care Prov ider Reason for Visit * Reason Comments New Visit Encounter Details Date Type Department Care Team Description 01/08/2023 Office Visit Gynecology/Obstetrics [address] [place] [address] Tisha Kimble CRNP [address] [place] [address] Encounter for supervision of normal first in third trimester*; Abnormal glucose tolerance in mother complicating Allergies Active Allergy Reactions Severity Noted Date Comments Escitalopram 01/08/2023 hallucinations Sulfa Antibiotics Hives 01/03/2023 documented as of this encounter (statuses as of 01/08/2023) Medications Medication Sig Dispensed Refills Start Date [...] as of this encounter (statuses as of 01/08/2023) Active Problems Problem Noted Date , normal first 01/08/2023 Overview: Transferring care at 33w2d. Awaiting records Needs 3hr GTT Abnormal glucose tolerance in mother com plicating 01/08/2023 Overview: Needs 3hr GTT Estimated Date of Delivery Comme nts Yes 02/24/2023 Based on Other B asis documented as of this encounter (statuses as of 01/08/2023) Social History Tobacco Use Types Packs/Day Years Used Date Smoking Tobacco: Never Smokeless Tobacco: Never Tobacco Cessation:Counseling Given: Not Answered Alcohol Use Standard Drinks/Week Comments Not Currently [...] Sign Reading Time Taken Comments Blood Pressure 110/60 01/08/2023 2:38 PM EDT Pulse - - Temperature - - Respiratory Rate - - Oxygen Saturation - - Inhaled Oxygen Concentration - - Weight 96.3 kg (212 lb 4.8 oz) 01/08/2023 2:38 P M EDT Height 160 cm (5' 3") 01/08/2023 2:38 PM EDT Body Mass Index 37.61 01/08/2023 2:38 PM EDT documented in this encounter Progress Notes * JOSEPHINE Krishnamurthy - 01/08/2023 3:23 PM EDT HPI: Delphine Bravo is a 27 year old year old female here for NOB visit. 33w2d . EDC 02/24/23. Transferring care, awaiting records. She reports her has been uncomplicated. Needs 3hr GTT, glucola was around 170. Reviewed PMH, PSH, social hx, and family hx with pt. She is taking PNV. She reports baby is moving well. No contractions, bleeding, or LOF. Was having some episodes of lightheadedness, was told to hydrate. She has been forcing fluids and hasn't felt this in the past few days. Past Medical History: Diagnosis Date Anemia Anxiety Asthma Endometriosis Past Surgical History: Procedure Laterality Date DENTAL SURGERY PROCEDURE NEC DE EXPLORATORY LAPAROTOMY CELIOTOMY W/WO BIOPSY SPX dx endometriosis Current outpatient prescriptions Current Outpatient Medications Medication Sig Dispense Refill 27-0.8 MG Oral Tablet Take 1 Tablet by mouth daily at noon. Famotidine 40 MG Oral Tablet (Pepcid) Take 0.5 Tablets by mouth in the morning and 0.5 Tablets before bedtime. Albuterol Sulfate (5 MG/ML) 0.5% Inhalation Nebulization Solution Inhale via nebulizer every 6 hours as needed for Wheezing. Montelukast Sodium 5 MG Oral Tablet Chewable Take 1 Tablet by mouth at bedtime. Fluticasone Furoate-Vilanterol 200-25 MCG/ACT Inhalation Aerosol Powder Breath Activated Inhale by mouth daily. No current facility-administered medications for this visit. Review of patient's allergies indicates: Allergen Reactions Lexapro [Escitalopram] hallucinations Sulfa Antibiotics Hives Social History Social History Socioeconomic History Marital status: Spouse name: Not on file Number of children: Not on file Years of education: Not on file Highest education level: Not on file Occupational History Occupation: studio receptionist Tobacco Use Smoking status: Never Smokeless tobacco: Never Substance and Sexual Activity Alcohol use: Not Currently Drug use: Not Currently Sexual activity: Yes Partners: Male Other Topics Concern Not on file Social History Narrative Not on file Social Determinants of Health Financial Resource Strain: Not on file Food Insecurity: Unknown Worried About Running Out of Food in the Last Year: Patient refused Ran Out of Food in the Last Year: Patient refused Transportation Needs: Not on file Physical Activity: Not on file Stress: Not on file Social Connections: Not on file Intimate Partner Violence: Not on file Housing Stability: Not on file Family History Family History Problem Relation Age of Onset Ovarian cancer Grandmother (Paternal) Ovarian cancer Aunt (Paternal) Ovarian cancer Aunt (Paternal) Breast Cancer Aunt (Paternal) Obstetric History OB History Para Term AB Living 1 SAB IAB Ectopic Multiple Live Births # Outcome Date GA Lbr Compa/2nd Weight Sex Delivery Anes PTL Lv 1 Current PHYSICAL EXAM: See physical IMPRESSION: Encounter for supervision of normal first in third trimester (Primary) Abnormal glucose tolerance in mother complicating - GESTATIONAL GLUCOSE TOLERANCE, 3 HOUR Follow Up: Return in about 2 weeks (around 01/22/2023) for betzy. | For: JOSEPHINE Alvarez * Rupa Camara LPN - 01/08/2023 2:41 PM EDT Pt reports increase in fatigue and lightheadedness. Pt concerned about vitamin D level being low. documented in this encounter Nursing Notes * Rupa Camara LPN - 01/08/2023 3:21 PM EDT Labor instructions provided, [facility] pre-admit form provided. documented in this encounter Plan of Treatment Upcoming Encounters Date Type Specialty Care Team Description 01/22/2023 Office Visit Gynecology Obstetrics Lidia Hemphill PA-C [address] [place] [address] Scheduled Orders Name Type Priority Associated Diagnoses Orde r Schedule GESTATIONAL GLUCOSE TOLERANCE, 3 HOUR Lab Routine Abnormal glucose tolerance in mother complicating Ordered: 01/08/2023 Health Maintenance Due Date Last Done Comments [...] care documented in this encounter Care Teams Tub Puller Relationship Specialty Start Date End Date Kalia Connor CRNP [address] [place] [address] PCP - General Nurse Practitioner 12/26/22 documented as of this encounter
--- OUTSIDE RECORDS SUMMARY | 2023-03-02 14:19 | External Medical Summary | Summary of Care ---
Author Name Unknown Organization [facility] Address [address] [place] [address] Phone [phone] Care Team Providers Care Rippler Name Role Phone Kalia Connor Primary Care Prov ider Reason for Visit * Reason Comments New Visit Encounter Details Date Type Department Care Team Description 01/03/2023 Nurse Only Gynecology/Obstetrics [facility] [address] [facility] [place] [address] Gw, Nurse Nuclear Physics Teacher New [facility] [place] [address] New Visit Allergies Active Allergy Reactions Severity Noted Date Comments Sulfa Antibiotics Hives 01/03/2023 documented as of this encounter (statuses as of 01/03/2023) Medications Medication Sig Dispensed Refills Start Date [...] 200-25 MCG/ACT Inhalation Aerosol Powder Breath Activated (BREO ellipta) Inhale by mouth daily. 0 Active documented as of this encounter (statuses as of 01/03/2023) Social History Tobacco Use Types Packs/Day Years Used Date Smoking Tobacco: Never Tobacco Cessation:Counseling Given: Not Answered Alcohol Use Standard Drinks/Week Comments Not Currently 0 (1 standard drink = 0.6 oz pur e alcohol) Comments Yes Sex Assigned at Date Recorded Female 01/03/2023 10:25 AM EDT documented as of this encounter Last Filed Vital Signs Vital Sign Reading Time Taken Comments Blood Pressure - - Pulse - - Temperature - - Respiratory Rate - - Oxygen Saturation - - Inhaled Oxygen Concentration - - Weight 93 kg (205 lb) 01/03/2023 10:39 AM EDT Height 160 cm (5' 3") 01/03/2023 10:39 AM EDT Body Mass Index 36.31 01/03/2023 10:39 AM EDT documented in this encounter Progress Notes * Alba Tolliver RN - 01/03/2023 10:43 AM EDT Patient [facility] 32w4d today She is having a lot of nausea/lightheadedness- Pt reports she Failed 1 hour glucose , having 3 hour glucose testing tomorrow Was having heart palpitations at times throughout but is not now Was not feeling baby move normally last week- went to [facility] and had NST and everything was okay- ? Anterior placenta Anatomy was good Patient aware to bring or fax all records of to us- gave fax number Gave triage number Gave education Answered questions Alba Tolliver RN documented in this encounter Plan of Treatment Upcoming Encounters Date Type Specialty Care Team Description 01/08/2023 Office Visit Gynecology Obstetrics Tisha Kimble CRNP [address] [facility] [place] [address] Health Maintenance Due Date Last Done Comments [...] filedocumented as of this encounter Care Teams Rippler Relationship Specialty Start Date End Date Kalia Connor CRNP [address] [place] [address] PCP - General Nurse Practitioner 12/26/22 documented as of this encounter
== END 2023-02-28 14:12 | disposition home or self-care (01) | DRG 806 ==
LOC: OPB 05:53 → 4S1 05:57 → 4E2 02-26 17:00